=== PATIENT | male | born 1960 | race Caucasian/White ===

== ENCOUNTER 2018-10-25 01:21 | Inpatient (IN) | payer OTHER, SELFPAY ==
[2018-10-25] MEDS ORDERED: TICAGRELOR 90 MG TABLET ONE (02:11)
[2018-10-25] MEDS ORDERED: hydrALAZINE 20 MG/ML VIAL ONE (02:12)
[2018-10-25] MEDS ORDERED: Zolpidem Tartrate 5 MG TAB PO PRN (02:15)
[2018-10-25] MEDS ORDERED: traMADol HCl 50 MG TAB PO PRN (02:15)
[2018-10-25] MEDS ORDERED: Morphine 4 MG/ML VIAL SLOW IVP PRN (02:15)
[2018-10-25] MEDS ORDERED: Milk Of Magnesia 30 ML UDCUP PO PRN (02:15)
[2018-10-25] MEDS ORDERED: Nitroglycerin 0.4 MG TAB (25 Tab Bottle) SL PRN (02:15)
[2018-10-25] MEDS ORDERED: Sodium Chloride 0.9% 1,000 ML IV SCH (02:15)
--- NOTE | 2018-10-25 02:49 | HP ---
DATE OF CONSULTATION: 10/25/2018 CHIEF COMPLAINT: Chest pain. HISTORY OF PRESENT ILLNESS: Mr. Sauer is a pleasant 57-year-old white gentleman, who comes to the hospital for chest pain. He went to the [place] [facility] for chest tightness that started at 11:30 p.m. He was found to have an inferior ST-elevation AR, so he was transferred over for further care. He was taken immediately to the [facility] where he was found to have an occluded RCA. This was wired and successfully stented with a bare-metal stent per his request. He did well pain. He is chest pain-free. He is doing much better. He has a history of coronary artery disease with previous stenting to his RCA several years ago, I think in 2002 and again in 2011 to the LAD after an FFR was positive. Otherwise has not had any issues since. He follows up with Dr. Cazares, but he never sees him in the office, he only sees him here in the hospital where there is an issue. PAST MEDICAL HISTORY: 1. Coronary artery disease as above. 2. Hypertension. 3. Hyperlipidemia. 4. Ongoing tobacco use. PAST SURGICAL HISTORY: 1. Heart catheterization with stenting as above. 2. Left knee surgery. OUTPATIENT MEDICATIONS: 1. Glyburide 2.5 mg a day. 2. Pravastatin 40 mg at bedtime. 3. Lisinopril and hydrochlorothiazide 20/12.5 a day. 4. Fish oil. 5. Fluoxetine. 6. Aspirin. 7. Amlodipine 5 mg a day. ALLERGIES: NO KNOWN DRUG ALLERGIES. SOCIAL HISTORY: He continues to smoke half pack of cigarettes. He has done so for a long long time. FAMILY HISTORY: Diabetes, coronary artery disease in multiple family members. REVIEW OF SYSTEMS: A 12-point review of systems was done and was found to be negative unless stated in the history of present illness. PHYSICAL EXAMINATION: VITAL SIGNS: Temperature 97.2, pulse 70, respiratory rate 18, sats 98% on room air, blood pressure 165/100. GENERAL: Awake, alert, and oriented x3, in no distress. HEENT: Normocephalic, atraumatic. NECK: Supple. LUNGS: Clear. CARDIOVASCULAR: S1, S2. No S3 or S4. No murmurs. ABDOMEN: Soft. Positive bowel sounds. EXTREMITIES: No edema. SKIN: Warm and dry. LABORATORY DATA: Laboratory work was reviewed. White count of 8.4, hemoglobin of 14, hematocrit 44, platelet count 239. Coags were reviewed. Chemistries were reviewed. Creatinine was 1.49, GFR 48. Troponin was 0.08 initially. BNP of 53. EKG was reviewed, inferior ST elevations with reciprocal changes. Chest x-ray was reviewed. ASSESSMENT AND PLAN: 1. Acute inferior ST-elevation myocardial infarction. 2. Residual severe left circumflex/obtuse marginal disease. 3. Status post bare-metal stenting to the right coronary artery. 4. Hypertension. 5. Diabetes. 6. Hyperlipidemia. PLAN: 1. Continue dual antiplatelet therapy with Plavix and aspirin. 2. Continue statin therapy. 3. We will start his home medications. We will put him on lisinopril only. Hopefully, we will be able to put him on a beta [place]. He was bradycardic after we opened up his RCA, which is expected, but hopefully his heart rate will tolerate a beta austin tomorrow. 4. PPI for stress ulcer prophylaxis. 5. Heparin subcu for DVT prophylaxis once his sheath has been pulled. 6. Full code. 7. Disposition is pending clinical evaluation. Likely in the hospital a few days he may need revascularization of the OM branch before leaving the hospital. Job ID: [id number]
[2018-10-25 03:31] VITALS: BMI 39.7
[2018-10-25 04:11] LABS: #Basophils 0.1 thou/uL (0.0-0.2); #Eosinphils 0.1 thou/uL (0.0-0.7); #Lymphocytes 1.9 thou/uL (1.20-3.40); #Monocytes 0.3 thou/uL (0.11-0.59); %Basophils 0.6 % (0.0-1.0); %Eosinophils 0.9 % (0.0-10.0); %Lymphocytes 22.3 % (21.0-51.0); %Monocytes 3.9 % (0.0-10.0); %Neutrophils 72.3 % (42.0-75.0); Mean Corpuscular HGB CONC 33.8 g/dL (32.0-36.0); Mean Corpuscular Hemoglobin 29.3 pg (27.0-31.0); Mean Corpuscular Volume 86.6 fL (78.0-98.0); Mean Platelet Volume 8.2 fL (7.4-10.4); Platelet Count 229 thou/uL (130-400); Red Blood Cell (RBC) Count 5.12 mill/uL (4.70-6.10); White Blood Cell (WBC) Count 8.3 thou/uL (4.8-10.8)
[2018-10-25 04:30] LABS: Anion Gap 13 mmol/L (10-20); BUN (Urea Nitrogen) 17 mg/dL (8.4-25.7); Calc. Creatinine Clearance 104 mL/min (70-130); Calcium 10.1 mg/dL (7.8-10.44); Carbon Dioxide 24 mmol/L (22-29); Chloride 104 mmol/L (98-107); Estimated GFR-MDRD 53; Glucose 215 mg/dL (70-105); Potassium 4.1 mmol/L (3.5-5.1); Sodium 137 mmol/L (136-145)
[2018-10-25 04:33] LABS: Cardiac Risk 4.7 (Less than 4.5); Cholesterol 146 mg/dl (< 200 Desired); HDL Cholesterol 31 mg/dL (>60 Neg Risk); Triglycerides 458 mg/dL (Less than 150)
[2018-10-25 04:55] LABS: CKMB 115.4 ng/mL (0-6.6); Troponin I 16.904 ng/mL (< 0.028)
[2018-10-25] MEDS: Lisinopril 20 MG TAB PO SCH (07:39)
[2018-10-25] MEDS: Amlodipine 5 MG TAB PO SCH (07:40)
[2018-10-25 09:45] LABS: CKMB 187.8 ng/mL (0-6.6); Troponin I 98.368 ng/mL (< 0.028)
[2018-10-25] MEDS: Aspirin Chewable 81 MG TAB PO SCH (09:56)
[2018-10-25] MEDS: Clopidogrel Bisulfate 75 MG TAB PO SCH (09:56)
[2018-10-25] MEDS ORDERED: hydrALAZINE 20 MG/ML VIAL SLOW IVP PRN (11:24)
[2018-10-25] MEDS ORDERED: Ondansetron PF 4 MG/2 ML Vial SLOW IVP PRN (11:25)
[2018-10-25 20:13] LABS: Critical Call Chem Troponin I DECREASED
[2018-10-25 20:34] LABS: CKMB 78.1 ng/mL (0-6.6); Critical Call CKMB DECREASED
[2018-10-25] MEDS: Pravastatin Sodium 40 MG TAB PO SCH (21:31)
[2018-10-26 05:57] LABS: ALT (SGPT) 30 U/L (8-55); AST (SGOT) 73 U/L (5-34); Albumin 3.6 g/dL (3.5-5.0); Alkaline Phosphatase 55 U/L (40-150); Anion Gap 13 mmol/L (10-20); BUN (Urea Nitrogen) 13 mg/dL (8.4-25.7); Bilirubin, Total 0.5 mg/dL (0.2-1.2); Calc. Creatinine Clearance 109 mL/min (70-130); Calcium 9.5 mg/dL (7.8-10.44); Carbon Dioxide 23 mmol/L (22-29); Chloride 106 mmol/L (98-107); Estimated GFR-MDRD 56; Globulin 2.4 g/dL (2.4-3.5); Glucose 146 mg/dL (70-105); Sodium 138 mmol/L (136-145)
[2018-10-26 06:17] LABS: #Eosinphils 0.1 thou/uL (0.0-0.7); #Lymphocytes 1.7 thou/uL (1.20-3.40); #Monocytes 0.4 thou/uL (0.11-0.59); %Basophils 0.2 % (0.0-1.0); %Eosinophils 1.7 % (0.0-10.0); %Lymphocytes 32.4 % (21.0-51.0); %Monocytes 7.9 % (0.0-10.0); %Neutrophils 57.8 % (42.0-75.0); Hemoglobin 12.8 g/dL (14.0-18.0); Mean Corpuscular HGB CONC 28.3 g/dL (32.0-36.0); Mean Corpuscular Hemoglobin 25.1 pg (27.0-31.0); Mean Corpuscular Volume 88.7 fL (78.0-98.0); Mean Platelet Volume 8.4 fL (7.4-10.4); Platelet Count 192 thou/uL (130-400); RBC Distribution Width 12.4 % (11.5-14.5); Red Blood Cell (RBC) Count 5.11 mill/uL (4.70-6.10); White Blood Cell (WBC) Count 5.1 thou/uL (4.8-10.8)
[2018-10-26 06:18] LABS: Elliptocytes SLIGHT = 2-5 cells (100X) (0-1/hpf); MDiff Complete? YES; Platelet Morphology Comment Appears Adequate
[2018-10-26] MEDS: Lisinopril 20 MG TAB PO SCH (09:23)
[2018-10-26] MEDS: Clopidogrel Bisulfate 75 MG TAB PO SCH (09:24)
[2018-10-26] MEDS: Aspirin Chewable 81 MG TAB PO SCH (09:24)
[2018-10-26] MEDS: Amlodipine 5 MG TAB PO SCH (09:24)
[2018-10-26] MEDS ORDERED: Dextrose 5% in Water 1,000 ML IV PRN (11:55)
[2018-10-26] MEDS ORDERED: Dextrose 50% Abboject 50 ML SYRINGE IVP PRN (11:55)
[2018-10-26] MEDS: Insulin Regular 300 UNITS/3 ML VIAL SC PRN ×2 (12:15→18:13)
--- NOTE | 2018-10-26 12:26 | PDOC.CTH ---
Cardiology Progress Note - Subjective Doing well. No chest pain. No other issues. - Objective Vital Signs Temp Pulse Pulse Pulse BP BP BP 10/26/18 12:16 71 66 145/87 H 132/88 10/26/18 10:00 97.8 F 10/26/18 09:24 60 132/88 10/26/18 09:23 132/88 10/26/18 09:00 97.8 F 10/26/18 07:26 10/26/18 07:00 97.6 F Pulse Ox Pulse Ox Pulse Ox 10/26/18 12:16 98 97 10/26/18 10:00 10/26/18 09:24 10/26/18 09:23 10/26/18 09:00 10/26/18 07:26 98 10/26/18 07:00 Weight 276 lb 14.409 oz 10/25/18 10/26/18 10/27/18 06:59 06:59 06:59 Intake Total 532 1884 300 Output Total 500 2250 200 Balance 32 -366 100 - Physical Examination General/Neuro: alert & oriented x3, NAD Neck: no JVD present Lungs: unlabored respirations Heart: RRR Abdomen: NT/ND Extremities: + edema B (trace) - Telemetry Telemetry Rhythm: NSR - Labs Result Diagrams: 10/26/18 04:24 10/26/18 04:24 Troponin/CKMB CK-MB (CK-2) 78.1 ng/mL (0-6.6) H* 10/25/18 19:19 Troponin I 63.167 ng/mL (< 0.028) H* 10/25/18 19:19 - Assessment/Plan 1. Acute inferior STEMI 2. S/P BMS to RCA 3. Residual OM disease, will need staged PCI. 4. HTN 5. T2DM. PLAN: - Restart all home meds for DM - Continue aspirin and statin and plavix. - Will up titrate CHF meds. - Will transfer to telemetry floor.
[2018-10-26] MEDS: Carvedilol 6.25 MG TAB PO SCH (18:14)
[2018-10-26] MEDS: busPIRone HCl 10 MG TAB PO SCH (20:38)
[2018-10-26] MEDS: Pravastatin Sodium 40 MG TAB PO SCH (20:38)
[2018-10-27] MEDS: Mag-Al 1200 mg/1200 mg/30 ML UDCUP PO PRN ×3 (02:37→20:06)
[2018-10-27] MEDS: Carvedilol 6.25 MG TAB PO SCH (09:04)
[2018-10-27] MEDS: Aspirin Chewable 81 MG TAB PO SCH (09:04)
[2018-10-27] MEDS: Clopidogrel Bisulfate 75 MG TAB PO SCH (09:05)
[2018-10-27] MEDS: busPIRone HCl 10 MG TAB PO SCH ×2 (09:05→19:58)
[2018-10-27] MEDS: Lisinopril 20 MG TAB PO SCH (09:05)
[2018-10-27] MEDS: Amlodipine 5 MG TAB PO SCH (09:05)
[2018-10-27] MEDS: Insulin Regular 300 UNITS/3 ML VIAL SC PRN ×2 (09:16→17:24)
[2018-10-27] MEDS ORDERED: Communication Order-Pharmacy FS SCH (10:45)
[2018-10-27] MEDS: Pravastatin Sodium 40 MG TAB PO SCH (19:58)
--- NOTE | 2018-10-27 21:18 | PDOC.PN ---
- Subjective Encounter Start Date: 10/27/18 Encounter Start Time: 10:30 Patient seen and examined for DM mngt. No new complaints. No overnight events - Objective MAR Reviewed: Yes Vital Signs & Weight: Vital Signs (12 hours) Temp Pulse Pulse Pulse Resp BP BP 10/27/18 16:42 98 F 58 L 18 10/27/18 11:49 98.2 F 60 18 10/27/18 09:58 59 L 78 144/86 H 146/83 H BP Pulse Ox Pulse Ox Pulse Ox 10/27/18 16:42 112/58 L 94 L 10/27/18 11:49 115/58 L 96 10/27/18 09:58 96 98 Weight Weight 275 lb 2 oz Most Recent Monitor Data Heart Rate from ECG 73 NIBP 117/88 NIBP BP-Mean 97 Respiration from ECG 18 SpO2 95 I&O: 10/26/18 10/27/18 10/28/18 06:59 06:59 06:59 Intake Total 1884 1180 860 Output Total 2250 1550 1000 Balance -366 -637 -690 Result Diagrams: 10/26/18 04:24 10/26/18 04:24 Additional Labs: Accuchecks 10/27/18 10/27/18 10/27/18 16:35 10:49 05:06 POC Glucose 170 H 123 H 161 H 10/26/18 20:20 POC Glucose 134 H EKG Reviewed by me: Yes (Tele SR) Phys Exam - Physical Examination Constitutional: NAD Respiratory: no wheezing, no rhonchi Cardiovascular: RRR, no rub Gastrointestinal: soft, non-tender, positive bowel sounds Musculoskeletal: no edema Dx/Plan (1) DM2 (diabetes mellitus, type 2) Status: Chronic Qualifiers: Chronic kidney disease stage: stage 3 (moderate) - Plan DVT proph w/SCDs Hold Metformin and Glyburide -: Mild insulin sliding scale -: Sugar checks ACHS -: Thank you for this consultation. Review of Systems - Review of Systems Respiratory: negative: Cough, Dry, Shortness of Breath, Hemoptysis, SOB with Excertion, Pleuritic Pain, Sputum, Wheezing Cardiovascular: negative: chest pain, palpitations, orthopnea, paroxysmal nocturnal dyspnea, edema, light headedness, other - Medications/Allergies Allergies/Adverse Reactions: Allergies Allergy/AdvReac Type Severity Reaction Status Date / Time No Known Allergies Allergy Verified 10/25/18 03:16 Medications: Current Medications Al Hydroxide/Mg Hydroxide (Maalox) 30 ml PO Q3H PRN PRN Reason: Indigestion Last Admin: 10/27/18 20:06 Dose: 30 ml Amlodipine Besylate (Norvasc) 5 mg PO DAILY [facility] Last Admin: 10/27/18 09:05 Dose: 5 mg Aspirin (Aspirin Chewable) 324 mg PO DAILY [facility] Last Admin: 10/27/18 09:04 Dose: 324 mg Buspirone HCl (Buspar) 10 mg PO BID [facility] Last Admin: 10/27/18 19:58 Dose: 10 mg Clopidogrel Bisulfate (Plavix) 75 mg PO DAILY [facility] Last Admin: 10/27/18 09:05 Dose: 75 mg Dextrose/Water (Dextrose 50%) 25 gm IVP PRN PRN PRN Reason: HYPOGLYCEMIA PROTOCOL Glucagon (Glucagon) 1 mg IM PRN PRN PRN Reason: HYPOGLYCEMIA PROTOCOL Hydralazine HCl (Apresoline) 10 mg SLOW IVP Q6H PRN PRN Reason: SBP Greater Than 170 Dextrose/Water (D5w) 1,000 mls @ 0 mls/hr IV INF PRN PRN Reason: HYPOGLYCEMIA PROTOCOL Sodium Chloride (Normal Saline 0.9%) 1,000 mls @ 100 mls/hr IV .Q10H [facility] Insulin Human Regular (Humulin R) 0 units SC .MILD SLIDING PRN; Protocol PRN Reason: MILD SLIDING SCALE Last Admin: 10/27/18 17:24 Dose: 2 unit Lisinopril (Zestril) 20 mg PO DAILY [facility] Last Admin: 10/27/18 09:05 Dose: 20 mg Magnesium Hydroxide (Milk Of Magnesium) 30 ml PO Q12H PRN PRN Reason: Constipation Miscellaneous Information (Communication Order-Pharmacy) 0 each FS ONE [facility] Stop: 10/29/18 15:00 Morphine Sulfate (Morphine) 2 mg SLOW IVP Q4H PRN PRN Reason: Moderate Chest Pain (4-6) Nitroglycerin (Nitrostat) 0.4 mg SL Q5MIN PRN PRN Reason: Chest Pain Ondansetron HCl (Zofran) 4 mg SLOW IVP Q6H PRN PRN Reason: Nausea/Vomiting Last Admin: 10/25/18 08:00 Dose: 4 mg Pantoprazole Sodium (Protonix) 40 mg PO DAILY [facility] Last Admin: 10/27/18 09:04 Dose: 40 mg Pravastatin Sodium (Pravachol) 40 mg PO HS [facility] Last Admin: 10/27/18 19:58 Dose: 40 mg Sodium Chloride (Flush - Normal Saline) 10 ml IVF Q12HR [facility] Last Admin: 10/27/18 19:58 Dose: 10 ml Sodium Chloride (Flush - Normal Saline) 10 ml IVF PRN PRN PRN Reason: Saline Flush Tramadol HCl (Ultram) 50 mg PO Q6H PRN PRN Reason: Mild Pain (1-3) Zolpidem Tartrate (Ambien) 5 mg PO HSPRN PRN PRN Reason: Insomnia
[2018-10-28 06:09] LABS: Anion Gap 11 mmol/L (10-20); BUN (Urea Nitrogen) 18 mg/dL (8.4-25.7); Calc. Creatinine Clearance 106 mL/min (70-130); Calcium 9.8 mg/dL (7.8-10.44); Carbon Dioxide 26 mmol/L (22-29); Chloride 106 mmol/L (98-107); Estimated GFR-MDRD 55; Glucose 150 mg/dL (70-105); Magnesium 2.3 mg/dL (1.6-2.6); Potassium 4.1 mmol/L (3.5-5.1); Sodium 139 mmol/L (136-145)
[2018-10-28] MEDS: Lisinopril 20 MG TAB PO SCH (10:09)
[2018-10-28] MEDS: Aspirin Chewable 81 MG TAB PO SCH (10:09)
[2018-10-28] MEDS: Sodium Chloride 0.9% 1,000 ML IV SCH (10:09)
[2018-10-28] MEDS: Amlodipine 5 MG TAB PO SCH (10:09)
[2018-10-28] MEDS: busPIRone HCl 10 MG TAB PO SCH ×2 (10:10→21:05)
[2018-10-28] MEDS: Clopidogrel Bisulfate 75 MG TAB PO SCH (10:33)
--- NOTE | 2018-10-28 20:31 | PDOC.PN ---
- Subjective Encounter Start Date: 10/28/18 Encounter Start Time: 10:15 Patient seen and examined for DM mngt. No new complaints. No overnight events - Objective MAR Reviewed: Yes Vital Signs & Weight: Vital Signs (12 hours) Temp Pulse Pulse Pulse Resp BP BP 10/28/18 15:52 98.3 F 56 L 18 10/28/18 12:51 98 F 56 L 18 10/28/18 09:19 56 L 52 L 180/89 H 166/83 H BP Pulse Ox Pulse Ox Pulse Ox 10/28/18 15:52 95 10/28/18 12:51 138/76 96 10/28/18 09:19 95 96 Weight Weight 274 lb 6 oz Most Recent Monitor Data Heart Rate from ECG 73 NIBP 117/88 NIBP BP-Mean 97 Respiration from ECG 18 SpO2 95 I&O: 10/27/18 10/28/18 10/29/18 06:59 06:59 06:59 Intake Total 1180 1560 1550 Output Total 1550 2825 820 Balance -370 -1265 730 Result Diagrams: 10/26/18 04:24 10/28/18 05:15 Additional Labs: Accuchecks 10/28/18 10/28/18 10/28/18 16:26 10:57 05:21 POC Glucose 159 H 152 H 145 H 10/27/18 20:35 POC Glucose 165 H Phys Exam - Physical Examination Constitutional: NAD Respiratory: no wheezing, no rhonchi Cardiovascular: RRR, no rub Gastrointestinal: soft, positive bowel sounds Dx/Plan (1) DM2 (diabetes mellitus, type 2) Status: Chronic Qualifiers: Chronic kidney disease stage: stage 3 (moderate) (2) SEB (obstructive sleep apnea) Code(s): G47.33 - OBSTRUCTIVE SLEEP APNEA (ADULT) (PEDIATRIC) Status: Suspected - Plan DVT proph w/SCDs Start Glipizide post Cath in AM -: Resume Metformin in 2-3 days -: Cont sliding scale -: CPAP trial HS if possible Review of Systems - Review of Systems Respiratory: negative: Cough, Dry, Shortness of Breath, Hemoptysis, SOB with Excertion, Pleuritic Pain, Sputum, Wheezing Cardiovascular: negative: chest pain, palpitations, orthopnea, paroxysmal nocturnal dyspnea, edema, light headedness, other - Medications/Allergies Allergies/Adverse Reactions: Allergies Allergy/AdvReac Type Severity Reaction Status Date / Time No Known Allergies Allergy Verified 10/25/18 03:16 Medications: Current Medications Al Hydroxide/Mg Hydroxide (Maalox) 30 ml PO Q3H PRN PRN Reason: Indigestion Last Admin: 10/27/18 20:06 Dose: 30 ml Amlodipine Besylate (Norvasc) 5 mg PO DAILY [facility] Last Admin: 10/28/18 10:09 Dose: 5 mg Aspirin (Aspirin Chewable) 324 mg PO DAILY [facility] Last Admin: 10/28/18 10:09 Dose: 324 mg Buspirone HCl (Buspar) 10 mg PO BID [facility] Last Admin: 10/28/18 10:10 Dose: 10 mg Clopidogrel Bisulfate (Plavix) 75 mg PO DAILY [facility] Last Admin: 10/28/18 10:33 Dose: 75 mg Dextrose/Water (Dextrose 50%) 25 gm IVP PRN PRN PRN Reason: HYPOGLYCEMIA PROTOCOL Glipizide (Glucotrol) 5 mg PO DAILY[facility] Glucagon (Glucagon) 1 mg IM PRN PRN PRN Reason: HYPOGLYCEMIA PROTOCOL Hydralazine HCl (Apresoline) 10 mg SLOW IVP Q6H PRN PRN Reason: SBP Greater Than 170 Dextrose/Water (D5w) 1,000 mls @ 0 mls/hr IV INF PRN PRN Reason: HYPOGLYCEMIA PROTOCOL Sodium Chloride (Normal Saline 0.9%) 1,000 mls @ 100 mls/hr IV .Q10H [facility] Sodium Chloride (Normal Saline 0.9%) 1,000 mls @ 50 mls/hr IV .Q20H [facility] Stop: 10/29/18 06:00 Last Admin: 10/28/18 10:09 Dose: 1,000 mls Insulin Human Regular (Humulin R) 0 units SC .MILD SLIDING PRN; Protocol PRN Reason: MILD SLIDING SCALE Last Admin: 10/27/18 17:24 Dose: 2 unit Lisinopril (Zestril) 20 mg PO DAILY [facility] Last Admin: 10/28/18 10:09 Dose: 20 mg Magnesium Hydroxide (Milk Of Magnesium) 30 ml PO Q12H PRN PRN Reason: Constipation Miscellaneous Information (Communication Order-Pharmacy) 0 each FS ONE [facility] Stop: 10/29/18 15:00 Morphine Sulfate (Morphine) 2 mg SLOW IVP Q4H PRN PRN Reason: Moderate Chest Pain (4-6) Nitroglycerin (Nitrostat) 0.4 mg SL Q5MIN PRN PRN Reason: Chest Pain Ondansetron HCl (Zofran) 4 mg SLOW IVP Q6H PRN PRN Reason: Nausea/Vomiting Last Admin: 10/25/18 08:00 Dose: 4 mg Pantoprazole Sodium (Protonix) 40 mg PO DAILY [facility] Last Admin: 10/28/18 10:09 Dose: 40 mg Pravastatin Sodium (Pravachol) 40 mg PO HS [facility] Last Admin: 10/27/18 19:58 Dose: 40 mg Sodium Chloride (Flush - Normal Saline) 10 ml IVF Q12HR [facility] Last Admin: 10/28/18 10:10 Dose: 10 ml Sodium Chloride (Flush - Normal Saline) 10 ml IVF PRN PRN PRN Reason: Saline Flush Tramadol HCl (Ultram) 50 mg PO Q6H PRN PRN Reason: Mild Pain (1-3) Zolpidem Tartrate (Ambien) 5 mg PO HSPRN PRN PRN Reason: Insomnia
[2018-10-28] MEDS: Mag-Al 1200 mg/1200 mg/30 ML UDCUP PO PRN (21:05)
[2018-10-28] MEDS: Pravastatin Sodium 40 MG TAB PO SCH (21:05)
[2018-10-29] MEDS: Sodium Chloride 0.9% 1,000 ML IV SCH (04:37)
[2018-10-29] MEDS: Amlodipine 5 MG TAB PO SCH (05:24)
[2018-10-29] MEDS: busPIRone HCl 10 MG TAB PO SCH ×2 (05:25→20:22)
[2018-10-29] MEDS: Lisinopril 20 MG TAB PO SCH (05:25)
[2018-10-29] MEDS: Clopidogrel Bisulfate 75 MG TAB PO SCH (05:25)
[2018-10-29] MEDS: Aspirin Chewable 81 MG TAB PO SCH (05:25)
[2018-10-29] MEDS ORDERED: Sodium Chloride 0.9% 1,000 ML IV SCH ×2 (06:00→08:15)
[2018-10-29] MEDS ORDERED: Fentanyl 100 MCG/2 ML VIAL ONE (06:37)
[2018-10-29] MEDS ORDERED: Midazolam HCl 2 mg/2 ml Vial ONE (06:37)
[2018-10-29 07:04] LABS: Anion Gap 10 mmol/L (10-20); Calc. Creatinine Clearance 100 mL/min (70-130); Calcium 9.7 mg/dL (7.8-10.44); Carbon Dioxide 26 mmol/L (22-29); Chloride 106 mmol/L (98-107); Estimated GFR-MDRD 52; Glucose 165 mg/dL (70-105); Potassium 4.3 mmol/L (3.5-5.1); Sodium 138 mmol/L (136-145)
[2018-10-29] MEDS ORDERED: Heparin 10,000 UNITS/1 ML VIAL ONE (07:11)
[2018-10-29] MEDS ORDERED: Bivalirudin 250 MG VIAL ONE (07:11)
[2018-10-29] MEDS ORDERED: Atropine Sulfate 1 mg/10 ml Syringe ONE (07:20)
[2018-10-29] MEDS ORDERED: Protamine Sulfate 50 MG/5 ML VIAL ONE (07:44)
[2018-10-29] MEDS ORDERED: Acetaminophen/Codeine 30-300mg Tablet PO PRN ×2 (08:13)
[2018-10-29] MEDS ORDERED: Sodium Chloride 0.9% 200 ML IV PRN (08:13)
[2018-10-29] MEDS ORDERED: Nitroglycerin 0.4 MG TAB (25 Tab Bottle) SL PRN (08:13)
[2018-10-29] MEDS: glipiZIDE 5 MG TAB PO SCH (08:41)
[2018-10-29] MEDS ORDERED: Iopamidol 370 76% 100 ML VIAL ONE (08:57)
[2018-10-29 09:00] LABS: BUN (Urea Nitrogen) 15 mg/dL (8.4-25.7)
[2018-10-29] MEDS: Amlodipine 10 MG TAB PO SCH (09:46)
[2018-10-29] MEDS: Mag-Al 1200 mg/1200 mg/30 ML UDCUP PO PRN ×2 (13:49→20:22)
--- NOTE | 2018-10-29 14:28 | CON ---
DATE OF CONSULTATION: HISTORY OF PRESENT ILLNESS: This is a 57-year-old gentleman, admitted about 4 days ago with chest pain and tightness, started about midnight, felt to be having an inferior [place] and transferred for care, where he was found to have an occluded right coronary artery and a bare-metal stent was placed. He had previously had stenting to his right coronary artery. He thinks about 8 and 5 years ago to the LAD. His compliance has been marginal with no followup with his home health care social worker. He was planned on a subsequent stent to a circumflex; however, on a repeat catheterization today, he had not only the distal OM lesion, which was concentric 80% stenosis, but he was felt to have an ostial LAD lesion of about 80%. PAST MEDICAL HISTORY: Includes hypertension, dyslipidemia, diabetes mellitus, and ongoing tobacco abuse. OUTPATIENT MEDICATIONS: Include; 1. Glyburide. 2. Pravastatin. 3. Lisinopril/hydrochlorothiazide. 4. Prozac. 5. Aspirin. 6. Amlodipine. 7. Since having his bare-metal stent, he has been loaded and started on Plavix. ALLERGIES: HE HAS NO KNOWN ALLERGIES. SOCIAL HISTORY: He does admit to smoking about almost a pack of cigarettes a day. He lives with his 14 and 19 year old daughters. 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 He does admit to marijuana use. DIAGNOSTIC DATA: Peak troponin in the hospital was about 100. He reported cardiac echo, which will need to be repeated prior to his surgery with an estimated ejection fraction of 50% to 55%, which seems in discordance with the left ventriculogram, but I saw that appeared to be about 35%, global hypokinesis. PAST SURGICAL HISTORY: Includes knee surgery on the left. PHYSICAL EXAMINATION: GENERAL: On examination, he is alert and cooperative gentleman. VITAL SIGNS: Height 5 feet 10 inches, weight 271, and BMI 39. NECK: No carotid bruits. LUNGS: Clear to auscultation anteriorly. CARDIAC: Regular rate and rhythm. No murmurs. ABDOMEN: Obese and nontender. Unable to palpate organomegaly due to size. EXTREMITIES: Peripheral pulses are intact posterior tibials bilaterally with no peripheral edema. ASSESSMENT AND PLAN: At this time, the patient could have graft to distal obtuse marginal and left anterior descending. Not sure that his ramus or proximal obtuse marginal have significant disease. He does have a diagonal with some disease, but it appears small. His main right coronary artery is okay and he has rather diffusely diseased small vessel distally in his right system. I have discussed smoking cessation and I will follow up with him in a month, at which time, we will stop his Plavix if he is interested in having coronary artery bypass grafting. Job ID: [id number]
[2018-10-29] MEDS: ALPRAZolam 0.25 MG TAB PO PRN (17:35)
[2018-10-29] MEDS: Pravastatin Sodium 40 MG TAB PO SCH (20:22)
--- NOTE | 2018-10-29 21:46 | PDOC.PN ---
- Subjective Encounter Start Date: 10/29/18 Encounter Start Time: 11:00 Patient seen and examined for DM2 mngt. No new complaints. No overnight events - Objective MAR Reviewed: Yes Vital Signs & Weight: Vital Signs (12 hours) Temp Pulse Resp BP BP Pulse Ox 10/29/18 20:20 97.7 F 75 18 159/70 H 98 10/29/18 16:10 99.9 F H 54 L 16 167/85 H 95 10/29/18 12:18 97.4 F L 66 14 154/79 H 98 Weight Weight 271 lb 14.4 oz Most Recent Monitor Data Heart Rate from ECG 73 NIBP 117/88 NIBP BP-Mean 97 Respiration from ECG 18 SpO2 95 I&O: 10/28/18 10/29/18 10/30/18 06:59 06:59 06:59 Intake Total 1560 2630 1800 Output Total 2825 1720 1950 Balance -1265 910 -150 Result Diagrams: 10/26/18 04:24 10/30/18 05:02 Additional Labs: Accuchecks 10/29/18 10/29/18 10/29/18 20:41 17:43 11:21 POC Glucose 156 H 123 H 138 H 10/29/18 06:02 POC Glucose 185 H EKG Reviewed by me: Yes (Tele SR) Phys Exam - Physical Examination Constitutional: NAD Respiratory: no wheezing, no rhonchi Cardiovascular: RRR, no rub Gastrointestinal: soft, non-tender, positive bowel sounds Musculoskeletal: no edema Dx/Plan (1) DM2 (diabetes mellitus, type 2) Status: Chronic Qualifiers: Chronic kidney disease stage: stage 3 (moderate) (2) SEB (obstructive sleep apnea) Code(s): G47.33 - OBSTRUCTIVE SLEEP APNEA (ADULT) (PEDIATRIC) Status: Suspected - Plan DVT proph w/SCDs Cont Glipzide -: Resume Metformin after 2 days -: Sleep study as outpt -: Declining long acting insulins - prefers to be on PO sulfonylureas Review of Systems - Review of Systems Cardiovascular: negative: chest pain, palpitations, orthopnea, paroxysmal nocturnal dyspnea, edema, light headedness, other Gastrointestinal: negative: Nausea, Vomiting, Abdominal Pain, Diarrhea, Constipation, Melena, Hematochezia, Other - Medications/Allergies Allergies/Adverse Reactions: Allergies Allergy/AdvReac Type Severity Reaction Status Date / Time No Known Allergies Allergy Verified 10/25/18 03:16 Medications: Current Medications Acetaminophen/Codeine Phosphate (Tylenol #3) 1 tab PO Q4H PRN PRN Reason: Mild Pain (1-3) Acetaminophen/Codeine Phosphate (Tylenol #3) 2 tab PO Q4H PRN PRN Reason: Moderate Pain (4-6) Al Hydroxide/Mg Hydroxide (Maalox) 30 ml PO Q3H PRN PRN Reason: Indigestion Last Admin: 10/29/18 20:22 Dose: 30 ml Alprazolam (Xanax) 0.25 mg PO BIDPRN PRN PRN Reason: Anxiety Last Admin: 10/29/18 17:35 Dose: 0.25 mg Amlodipine Besylate (Norvasc) 5 mg PO DAILY [facility] Last Admin: 10/29/18 05:24 Dose: 5 mg Amlodipine Besylate (Norvasc) 10 mg PO DAILY [facility] Last Admin: 10/29/18 09:46 Dose: 10 mg Aspirin (Aspirin Chewable) 324 mg PO DAILY [facility] Last Admin: 10/29/18 05:25 Dose: 324 mg Buspirone HCl (Buspar) 10 mg PO BID [facility] Last Admin: 10/29/18 20:22 Dose: 10 mg Clopidogrel Bisulfate (Plavix) 75 mg PO DAILY [facility] Last Admin: 10/29/18 05:25 Dose: 75 mg Dextrose/Water (Dextrose 50%) 25 gm IVP PRN PRN PRN Reason: HYPOGLYCEMIA PROTOCOL Glipizide (Glucotrol) 5 mg PO DAILY[facility] Last Admin: 10/29/18 08:41 Dose: Not Given Glucagon (Glucagon) 1 mg IM PRN PRN PRN Reason: HYPOGLYCEMIA PROTOCOL Hydralazine HCl (Apresoline) 10 mg SLOW IVP Q6H PRN PRN Reason: SBP Greater Than 170 Dextrose/Water (D5w) 1,000 mls @ 0 mls/hr IV INF PRN PRN Reason: HYPOGLYCEMIA PROTOCOL Sodium Chloride (Normal Saline 0.9%) 200 mls @ 0 mls/hr IV ONE PRN PRN Reason: SBP < 90 Stop: 10/30/18 08:14 Insulin Human Regular (Humulin R) 0 units SC .MILD SLIDING PRN; Protocol PRN Reason: MILD SLIDING SCALE Last Admin: 10/27/18 17:24 Dose: 2 unit Lisinopril (Zestril) 20 mg PO DAILY [facility] Last Admin: 10/29/18 05:25 Dose: 20 mg Magnesium Hydroxide (Milk Of Magnesium) 30 ml PO Q12H PRN PRN Reason: Constipation Morphine Sulfate (Morphine) 2 mg SLOW IVP Q4H PRN PRN Reason: Moderate Chest Pain (4-6) Nitroglycerin (Nitrostat) 0.4 mg SL Q5MIN PRN PRN Reason: Chest Pain Nitroglycerin (Nitrostat) 0.4 mg SL Q5MIN PRN PRN Reason: Chest Pain Ondansetron HCl (Zofran) 4 mg SLOW IVP Q6H PRN PRN Reason: Nausea/Vomiting Last Admin: 10/25/18 08:00 Dose: 4 mg Pantoprazole Sodium (Protonix) 40 mg PO DAILY [facility] Last Admin: 10/29/18 05:26 Dose: 40 mg Pravastatin Sodium (Pravachol) 40 mg PO HS [facility] Last Admin: 10/29/18 20:22 Dose: 40 mg Sodium Chloride (Flush - Normal Saline) 10 ml IVF Q12HR [facility] Last Admin: 10/29/18 20:22 Dose: 10 ml Sodium Chloride (Flush - Normal Saline) 10 ml IVF PRN PRN PRN Reason: Saline Flush Tramadol HCl (Ultram) 50 mg PO Q6H PRN PRN Reason: Mild Pain (1-3) Zolpidem Tartrate (Ambien) 5 mg PO HSPRN PRN PRN Reason: Insomnia
[2018-10-30 06:12] LABS: Anion Gap 12 mmol/L (10-20); BUN (Urea Nitrogen) 17 mg/dL (8.4-25.7); Calc. Creatinine Clearance 98 mL/min (70-130); Calcium 10.1 mg/dL (7.8-10.44); Carbon Dioxide 26 mmol/L (22-29); Chloride 105 mmol/L (98-107); Estimated GFR-MDRD 52; Glucose 134 mg/dL (70-105); Potassium 4.1 mmol/L (3.5-5.1); Sodium 139 mmol/L (136-145)
[2018-10-30] MEDS: Amlodipine 10 MG TAB PO SCH (09:14)
[2018-10-30] MEDS: glipiZIDE 5 MG TAB PO SCH (09:14)
[2018-10-30] MEDS: Aspirin Chewable 81 MG TAB PO SCH (09:16)
[2018-10-30] MEDS: Clopidogrel Bisulfate 75 MG TAB PO SCH (09:18)
[2018-10-30] MEDS: busPIRone HCl 10 MG TAB PO SCH (09:18)
[2018-10-30] MEDS: Lisinopril 20 MG TAB PO SCH (09:19)
[2018-10-30] MEDS: ALPRAZolam 0.25 MG TAB PO PRN (15:46)
--- NOTE | 2018-10-30 16:14 | PDOC.EVN ---
Event Note - Event Note Event Note: No Betablockers due to bradycardia
[2018-10-30 16:24] VITALS: BP 142/93; TEMP 96.4
--- NOTE | 2018-10-31 05:30 | DIS ---
DATE OF ADMISSION: 10/25/2018 DATE OF DISCHARGE: 10/30/2018 DISCHARGE DISPOSITION: Home. FOLLOWUP: 1. Follow up with [facility] in 1 week. 2. Follow up with Dr. Cazares in 2 to 3 weeks. 3. Outpatient sleep study is recommended. 4. Follow up with cardiovascular for evaluation for open heart surgery. Resume metformin after 2 days. DISCHARGE MEDICATIONS: 1. Aspirin 325 mg daily. 2. Plavix 75 mg daily. 3. Glyburide 2.5 mg daily. 4. Lisinopril 20 mg daily. 5. Amlodipine 10 mg daily. 6. Pravastatin 40 mg at bedtime. 7. Hydrochlorothiazide 25 mg daily. 8. Buspirone 10 mg b.i.d. 9. Fish oil 1000 mg daily. [facility]. BRIEF HOSPITAL COURSE: The patient is a 57-year-old male with coronary artery disease, hypertension, hyperlipidemia, and with ongoing tobacco abuse presented to [facility] with chest discomfort. He was transferred to this facility as STEMI alert. He underwent emergent cardiac catheterization and was found to have occluded RCA and a bare metal stent was placed. He has a history of previous stenting to the RCA as well. He underwent repeat cardiac catheterization by Dr. Cazares yesterday that was consistent with three-vessel disease. The coronary artery bypass grafting was recommended. He was evaluated by Dr. Joyner. Lifestyle modification including tobacco cessation was emphasized. He will follow up with Dr. Joyner next month once he completes his 30 days of Plavix. An echocardiogram was performed that showed ejection fraction 50% to 55% with grade 1/3 diastolic dysfunction, mild mitral regurgitation, and mild tricuspid regurgitation. On the day of discharge, the patient is chest pain-free. His vital signs show temperature 96.1, pulse rate of 59, respirations of 18, blood pressure 137/68 with O2 saturation 96% on room air. The patient was also found to have sinus bradycardia, especially at night. He was advised to get a sleep study as outpatient. Beta blockers were not started due to significant bradycardia with heart rate in 30s. FINAL DIAGNOSES: 1. Chest discomfort with ST-elevation myocardial infarction. His maximum troponin was 63.1. 2. Chronic kidney disease, stage 3. 3. Diabetes mellitus type 2. 4. Suspected obstructive sleep apnea. 5. Tobacco dependence. 6. Hypertension. 7. Hyperlipidemia. 8. History of coronary artery disease. PLAN: Plan of care was discussed with the patient. He stated understanding. Job ID: [id number]
== END 2018-10-30 17:10 | disposition home or self-care (01) | DRG 249 ==
LOC: CCL 01:21 → CCU 02:02 → 2NO 10-26 12:27
PROVIDERS: ADMIT Internal Medicine Cardiovascular Disease; ATTEND Internal Medicine Cardiovascular Disease
PROC: 02703DZ Dilation of Coronary Artery, One Artery with Intraluminal Device, Percutaneous Approach (ICD-10-PCS; principal; 2018-10-25)
PROC: 4A023N7 Measurement of Cardiac Sampling and Pressure, Left Heart, Percutaneous Approach (ICD-10-PCS; 2018-10-25)
PROC: B2111ZZ Fluoroscopy of Multiple Coronary Arteries using Low Osmolar Contrast (ICD-10-PCS; 2018-10-25)
PROC: 4A023N7 Measurement of Cardiac Sampling and Pressure, Left Heart, Percutaneous Approach (ICD-10-PCS; 2018-10-29)
PROC: B2111ZZ Fluoroscopy of Multiple Coronary Arteries using Low Osmolar Contrast (ICD-10-PCS; 2018-10-29)
DX: I21.19 ST elevation (STEMI) myocardial infarction involving other coronary artery of inferior wall (principal); I25.10 Atherosclerotic heart disease of native coronary artery without angina pectoris; I12.9 Hypertensive chronic kidney disease with stage 1 through stage 4 chronic kidney disease, or unspecified chronic kidney disease; E11.22 Type 2 diabetes mellitus with diabetic chronic kidney disease; N18.3 Chronic kidney disease, stage 3 (moderate); G47.33 Obstructive sleep apnea (adult) (pediatric); E78.5 Hyperlipidemia, unspecified; F17.210 Nicotine dependence, cigarettes, uncomplicated; Z91.19 Patient's noncompliance with other medical treatment and regimen; Z79.84 Long term (current) use of oral hypoglycemic drugs; Z79.82 Long term (current) use of aspirin; Z79.899 Other long term (current) drug therapy
CPT/HCPCS: 36415; 36416; 80048; 80053; 80061; 82553; 83735; 85025; 85347; 92928; 93005; 93010; 93306; 93458; 93798; 94760; 99152; 99153; C1725; C1769; C1876; C1887; J0360; J0461; J0583; J1644; J1815; J2250; J2270; J2405; J2720; J3010; Q9967

== ENCOUNTER 2018-12-08 12:00 | Inpatient (IN) | payer SELFPAY ==
[2018-12-08 13:09] LABS: Hemoglobin 14.1 g/dL (14.0-18.0); Mean Corpuscular HGB CONC 33.8 g/dL (32.0-36.0); Mean Corpuscular Hemoglobin 28.7 pg (27.0-31.0); Mean Corpuscular Volume 84.9 fL (78.0-98.0); Mean Platelet Volume 7.7 fL (7.4-10.4); Platelet Count 212 thou/uL (130-400); RBC Distribution Width 11.7 % (11.5-14.5); White Blood Cell (WBC) Count 7.4 thou/uL (4.8-10.8)
[2018-12-08 13:32] LABS: Anion Gap 12 mmol/L (10-20); BUN (Urea Nitrogen) 21 mg/dL (8.4-25.7); Calc. Creatinine Clearance 0 mL/min (70-130); Calcium 10.1 mg/dL (7.8-10.44); Carbon Dioxide 27 mmol/L (22-29); Chloride 103 mmol/L (98-107); Estimated GFR-MDRD 46; Glucose 89 mg/dL (70-105); Potassium 3.4 mmol/L (3.5-5.1); Sodium 139 mmol/L (136-145)
[2018-12-09] MEDS ORDERED: Bupivacaine HCl 0.5%/Epinephrine 1:200,000/PF 30 ml Vial ONE (06:34)
[2018-12-09] MEDS ORDERED: Dexamethasone 4 mg/ml Vial ONE (06:34)
[2018-12-09] MEDS ORDERED: Heparin 10,000 UNITS/1 ML VIAL 30,000 UNITS in Sodium Chloride 0.9% 1,000 ML FS SCH (06:45)
[2018-12-09] MEDS ORDERED: Midazolam HCl 5 mg/5 ml Vial ONE (06:50)
[2018-12-09] MEDS ORDERED: Fentanyl 250 MCG/5 ML VIAL ONE (06:50)
[2018-12-09] MEDS ORDERED: Midazolam HCl 2 mg/2 ml Vial ONE (07:11)
[2018-12-09] MEDS ORDERED: Albumin 5% 500 ML ONE (08:09)
[2018-12-09] MEDS ORDERED: PHENYLEPHRINE-NS 100 MCG/ML 10 ML SYRINGE ONE (10:06)
[2018-12-09] MEDS ORDERED: Vecuronium 10 MG VIAL ONE ×2 (10:36→13:05)
[2018-12-09] MEDS ORDERED: Insulin Regular 300 UNITS/3 ML VIAL ONE (10:41)
[2018-12-09] MEDS ORDERED: Bisacodyl 10 MG SUPP PR PRN (11:35)
[2018-12-09] MEDS ORDERED: Guaifenesin DM 100-10/5 ML UDCUP PO PRN (11:35)
[2018-12-09] MEDS ORDERED: HYDROcodone/Acetaminophen 5/325 mg Tablet PO PRN (11:35)
[2018-12-09] MEDS ORDERED: Magnesium 2 GM/NS 0.9% 100 ML 2 GM in Premix Bag 1 BAG IVPB SCH (11:35)
[2018-12-09] MEDS ORDERED: niCARdipine HCl 25 MG in Sodium Chloride 0.9% 250 ML 240 ML IVPB PRN (11:35)
[2018-12-09] MEDS ORDERED: Hetastarch 6% 500 ML 500 ML IVPB PRN (11:35)
[2018-12-09] MEDS ORDERED: DOPamine 400 MG/D5W 250 ML 250 ML IVPB PRN (11:35)
[2018-12-09] MEDS ORDERED: Post-Op Insulin Drip Protocol IVPB ONE (11:35)
[2018-12-09] MEDS ORDERED: Nitroglycerin 50 MG/250 ML BOT 250 ML IVPB PRN (11:35)
[2018-12-09] MEDS ORDERED: Mag-Al 1200 mg/1200 mg/30 ML UDCUP PO PRN (11:35)
[2018-12-09] MEDS ORDERED: Bisacodyl 5 MG TAB PO PRN (11:35)
[2018-12-09] MEDS ORDERED: Promethazine HCl 25 MG/ML VIAL IM PRN (11:35)
[2018-12-09] MEDS ORDERED: Norepinephrine 8 MG/0.9% NS 250 ML IVPB PRN (11:35)
[2018-12-09] MEDS ORDERED: Ondansetron PF 4 MG/2 ML Vial IVP PRN (11:35)
[2018-12-09] MEDS ORDERED: hydrALAZINE 20 MG/ML VIAL SLOW IVP PRN (11:35)
[2018-12-09] MEDS ORDERED: Acetaminophen 325 MG TAB PO PRN (11:35)
[2018-12-09] MEDS ORDERED: Fentanyl 100 MCG/2 ML VIAL SLOW IVP PRN (11:35)
[2018-12-09] MEDS ORDERED: Dextrose 50% Abboject 50 ML SYRINGE SLOW IVP PRN (12:02)
[2018-12-09] MEDS ORDERED: Dextrose 5% in Water 1,000 ML IV PRN (12:02)
[2018-12-09] MEDS ORDERED: HUMULIN R 100 UNITS in Sodium Chloride 0.9% 100 ML IVPB SCH (12:02)
[2018-12-09] MEDS ORDERED: Insulin Regular 300 UNITS/3 ML VIAL SC PRN (12:02)
[2018-12-09 12:07] LABS: Actual Bicarbonate (HCO3a) 23.9 mEq/L (22-28); Base Excess (BEa) -1.9 mEq/L (-2.0 to +3.0); CO2 Tension 44.3 mmHg (35.0-45.0); Calcium, Ionized 1.24 mmol/L (1.12-1.30); Carboxyhemoglobin (COHb) 0.7 gm% (0.0-3.0); Hemoglobin (Hb) 13.3 g/dL (14.0-18.0); O2 Tension (PaO2) 64.7 mmHg (80.0-100.0); Potassium - ABG Lab 3.99 mmol/L (3.70-5.30); pH, Arterial 7.35 (7.35-7.45)
[2018-12-09 12:09] LABS: Puncture Site LINE
[2018-12-09 12:10] LABS: ALV-art Gradient 307.725 (0-20)
[2018-12-09 12:19] LABS: #Eosinphils 0.1 thou/uL (0.0-0.7); #Lymphocytes 1.5 thou/uL (1.20-3.40); #Monocytes 0.9 thou/uL (0.11-0.59); #Neutrophils 12.5 thou/uL (1.40-6.50); %Basophils 0.2 % (0.0-1.0); %Eosinophils 0.6 % (0.0-10.0); %Monocytes 5.9 % (0.0-10.0); %Neutrophils 83.4 % (42.0-75.0); Hemoglobin 12.9 g/dL (14.0-18.0); Mean Corpuscular Hemoglobin 29.2 pg (27.0-31.0); Mean Corpuscular Volume 85.9 fL (78.0-98.0); Mean Platelet Volume 7.8 fL (7.4-10.4); Platelet Count 170 thou/uL (130-400); RBC Distribution Width 11.6 % (11.5-14.5); Red Blood Cell (RBC) Count 4.41 mill/uL (4.70-6.10)
[2018-12-09 12:25] LABS: INR-International Normal Ratio 1.2; PTT 27.1 SEC (22.9-36.1); Prothrombin Time 15.6 SEC (12.0-14.7)
[2018-12-09] MEDS ORDERED: Morphine 2 MG/ML SYRINGE SLOW IVP PRN (12:25)
[2018-12-09] MEDS ORDERED: Magnesium 2 GM/50 ML 2 GM in Premix Bag 1 BAG IVPB SCH (12:30)
[2018-12-09 12:33] LABS: Anion Gap 11 mmol/L (10-20); BUN (Urea Nitrogen) 18 mg/dL (8.4-25.7); Calc. Creatinine Clearance 90 mL/min (70-130); Calcium 8.8 mg/dL (7.8-10.44); Carbon Dioxide 24 mmol/L (22-29); Chloride 107 mmol/L (98-107); Estimated GFR-MDRD 49; Glucose 144 mg/dL (70-105); Potassium 4.1 mmol/L (3.5-5.1); Sodium 138 mmol/L (136-145)
[2018-12-09] MEDS: Acetaminophen 1,000 MG in Premix Bag 1 BAG IVPB SCH ×3 (12:35→23:36)
--- NOTE | 2018-12-09 12:39 | RAD ---
AP CHEST: Indication: History of open heart surgery. Comparison: 10-25-18 FINDINGS: The patient has been intubated. There are new midline sternotomy changes. There are findings of inter jyotsna coronary artery bypass. There is a right subclavian central venous catheter projecting in the reg ion of the right atrium. There is a midline mediastinal drain. No pneumothorax is evident. There is m ild pulmonary vascular congestion. IMPRESSION: 1. Cardiomegaly with mild pulmonary vascular congestion may reflect volume overload or mild CHF. 2. Interval post-surgical changes of CABG. 3. Right subclavian central venous catheter, midline mediastinal drain and ET tube. 4. No pneumothorax demonstrated. POS: [facility]
[2018-12-09] MEDS ORDERED: Potassium Chloride 60 MEQ/30 ML VIAL ONE (13:05)
[2018-12-09] MEDS ORDERED: Heparin 30,000 units/30 ml VIAL ONE (13:05)
[2018-12-09] MEDS ORDERED: Mannitol 12.5 GM/50 ML ONE (13:05)
[2018-12-09] MEDS ORDERED: Rocuronium Bromide 10 MG/ML (10ML VIAL) ONE (13:05)
[2018-12-09] MEDS ORDERED: Calcium Chloride 1 GM/10 ML Abboject SYRINGE ONE (13:05)
[2018-12-09] MEDS ORDERED: Aminocaproic Acid 5 GM/20 ML VIAL ONE (13:05)
[2018-12-09] MEDS ORDERED: Thrombin 5000 UNITS/5 ML VIAL ONE (13:05)
[2018-12-09] MEDS ORDERED: Cardioplegic Soln 1,000 ML BAG ONE (13:05)
[2018-12-09] MEDS ORDERED: Papaverine 60 MG/2 ML VIAL ONE (13:05)
[2018-12-09] MEDS ORDERED: Protamine Sulfate 250 MG/25 ML VIAL ONE (13:05)
[2018-12-09] MEDS ORDERED: Magnesium 5 GM/10 ML VIAL ONE (13:05)
[2018-12-09] MEDS ORDERED: PROPOFOL 200 MG/20 ML VIAL ONE (13:05)
[2018-12-09] MEDS ORDERED: Sodium Bicarb 50 MEQ/50 ML Abboject 8.4% SYRINGE ONE (13:05)
[2018-12-09] MEDS ORDERED: Lidocaine 2% PF 100 mg/5 ml Syringe ONE (13:05)
[2018-12-09] MEDS ORDERED: Heparin 5,000 UNITS/ML VIAL ONE (13:05)
[2018-12-09] MEDS: Sodium Chloride 0.9% 1,000 ML IV SCH ×2 (13:55→21:42)
[2018-12-09 13:56] LABS: Actual Bicarbonate (HCO3a) 21.7 mEq/L (22-28); Base Excess (BEa) -2.8 mEq/L (-2.0 to +3.0); CO2 Tension 36.7 mmHg (35.0-45.0); Calcium, Ionized 1.22 mmol/L (1.12-1.30); Carboxyhemoglobin (COHb) 1.1 gm% (0.0-3.0); O2 Tension (PaO2) 63.6 mmHg (80.0-100.0); Potassium - ABG Lab 4.07 mmol/L (3.70-5.30); pH, Arterial 7.39 (7.35-7.45)
[2018-12-09 13:57] LABS: ALV-art Gradient 247.025 (0-20); Puncture Site LINE
[2018-12-09] MEDS: Fentanyl 100 MCG/2 ML VIAL SLOW IVP PRN ×3 (14:09→23:43)
[2018-12-09] MEDS: CEFAZOLIN 2 GM in Premix Bag 1 BAG IVPB SCH ×2 (14:11→21:05)
--- NOTE | 2018-12-09 14:35 | OP ---
DATE OF PROCEDURE: 12/09/2018 PREOPERATIVE DIAGNOSIS: Coronary artery disease. POSTOPERATIVE DIAGNOSIS: Coronary artery disease. PROCEDURES PERFORMED: Coronary artery bypass graft x3, left internal mammary artery to a 1.5 mm left anterior descending, saphenous vein graft good quality to 2 mm ramus, and left radial artery to a 1.5 mm obtuse marginal EXPERIMENTAL OUTBOARD MOTORS MECHANIC: Gulshan Moy MD DESCRIPTION OF PROCEDURE: After adequate anesthesia had been obtained, the patient was prepped and draped. Dr. Moy did an open vein harvest for the ramus graft while I performed a left radial artery harvest, after ensuring good collateral flow with plethysmography. A full 7 inches of radial artery was harvested, wound closed and then a median sternotomy was performed and the left internal mammary artery was harvested. The patient was heparinized. The mammary divided distally. It was passed posterior to the thymus gland. An incision was made in the pericardium to allow direct access to the LAD. Aorta and right atrium were cannulated and cardiopulmonary bypass was begun. The heart was quite large and for this reason, the entire SHANKS was utilized to graft the LAD as far as length was concerned and the radial artery came about 2 cm short of reach in the trujillo of the diagonal on the aortic root. After performing the 3 distal anastomosis, the cross-clamp was removed and the partial occluding clamp placed and the vein anastomosis performed on the aortic root and marked with a ring. The partial occluding clamp was then removed and the radial graft was anastomosed to the vein graft about 2 cm from the aortic insertion site of the vein. A suture was required in the heel of the distal radial artery graft. Following which, the patient was weaned from cardiopulmonary bypass. Cannulas were removed and the aortic cannulation site was secured with a Prolene suture. Two mediastinal drains were placed following which the sternum was reapproximated with #7 interrupted wire as well as 3 zip ties. Vancomycin paste was used on the sternal edges, platelet rich blood and platelet poor plasma. Subcutaneous tissue and skin were closed in layers and the patient is to be taken to the ICU in guarded condition. Job ID: [id number]
[2018-12-09 17:05] LABS: Hemoglobin 12.8 g/dL (14.0-18.0)
[2018-12-09] MEDS: Atorvastatin Calcium 40 MG TAB PO SCH (20:22)
[2018-12-09] MEDS: Famotidine/PF 20 mg/2ml Vial SLOW IVP SCH (20:22)
[2018-12-09 20:31] LABS: Potassium 3.7 mmol/L (3.5-5.1)
[2018-12-09] MEDS ORDERED: Pravastatin Sodium 40 MG TAB PO SCH (21:00)
[2018-12-09] MEDS ORDERED: Simvastatin 40 MG TAB PO SCH (21:00)
[2018-12-09] MEDS ORDERED: Atorvastatin Calcium 10 MG TAB PO SCH (21:00)
[2018-12-09] MEDS: Potassium Chloride 20 MEQ/100 ML PREMIX BAG IVPB PRN (21:40)
--- NOTE | 2018-12-09 22:33 | EKG ---
Test Reason : POST CABG Blood Pressure : / mmHG Vent. Rate : 058 BPM Atrial Rate : 058 BPM P-R Int : 156 ms QRS Dur : 098 ms QT Int : 444 ms P-R-T Axes : -01 000 -30 degrees QTc Int : 435 ms Sinus bradycardia Inferior infarct (cited on or before 26-OCT-2018) Abnormal ECG When compared with ECG of 26-OCT-2018 05:52, (Unconfirmed) No significant change was found Confirmed by Aixa PHILLIPS ([id number]) on 12/09/2018 10:33:34 PM Referred By: LUZ Confirmed By:Aixa PHILLIPS
[2018-12-10 04:32] LABS: #Lymphocytes 1.4 thou/uL (1.20-3.40); #Monocytes 0.9 thou/uL (0.11-0.59); #Neutrophils 8.5 thou/uL (1.40-6.50); %Basophils 0.3 % (0.0-1.0); %Eosinophils 0.1 % (0.0-10.0); %Monocytes 8.4 % (0.0-10.0); %Neutrophils 78.3 % (42.0-75.0); Hemoglobin 11.9 g/dL (14.0-18.0); Mean Corpuscular HGB CONC 33.6 g/dL (32.0-36.0); Mean Corpuscular Hemoglobin 28.9 pg (27.0-31.0); Mean Corpuscular Volume 85.8 fL (78.0-98.0); Mean Platelet Volume 7.6 fL (7.4-10.4); Platelet Count 159 thou/uL (130-400); RBC Distribution Width 11.7 % (11.5-14.5); Red Blood Cell (RBC) Count 4.13 mill/uL (4.70-6.10); White Blood Cell (WBC) Count 10.9 thou/uL (4.8-10.8)
[2018-12-10] MEDS: Fentanyl 100 MCG/2 ML VIAL SLOW IVP PRN (04:32)
[2018-12-10 04:45] LABS: Anion Gap 10 mmol/L (10-20); BUN (Urea Nitrogen) 17 mg/dL (8.4-25.7); Calc. Creatinine Clearance 99 mL/min (70-130); Carbon Dioxide 27 mmol/L (22-29); Chloride 108 mmol/L (98-107); Estimated GFR-MDRD 54; Glucose 126 mg/dL (70-105); Potassium 3.6 mmol/L (3.5-5.1); Sodium 141 mmol/L (136-145)
[2018-12-10] MEDS: Acetaminophen 1,000 MG in Premix Bag 1 BAG IVPB SCH ×2 (05:22→12:53)
[2018-12-10 05:42] VITALS: BMI 36.4
[2018-12-10] MEDS: CEFAZOLIN 2 GM in Premix Bag 1 BAG IVPB SCH (05:45)
[2018-12-10] MEDS: Potassium Chloride 20 MEQ/100 ML PREMIX BAG IVPB PRN (06:27)
--- NOTE | 2018-12-10 07:49 | RAD ---
XR Chest 1 View Portable History: [Post open heart surgery] Comparison: Radiograph prior day Findings: Patient has been extubated. Right subclavian central venous catheter is similar. Heart size is enlarged. Multiple midline sternotomy wires. The changes appear to have been removed. Trace left effusion. Impression: Interval extubation without complication.
[2018-12-10] MEDS: Aspirin 325 MG TAB PO SCH (08:40)
[2018-12-10] MEDS: glyBURIDE 2.5 MG TAB PO SCH (08:40)
[2018-12-10] MEDS: Famotidine/PF 20 mg/2ml Vial SLOW IVP SCH ×2 (08:40→19:55)
[2018-12-10] MEDS: Clopidogrel Bisulfate 75 MG TAB PO SCH (08:40)
[2018-12-10 08:58] LABS: Cardiac Risk 3.5 (Less than 4.5)
[2018-12-10] MEDS: Sodium Chloride 0.9% 1,000 ML IV SCH ×2 (10:14→17:40)
[2018-12-10] MEDS: metFORMIN 500 MG TAB PO SCH (16:59)
[2018-12-10] MEDS: HYDROcodone/Acetaminophen 5/325 mg Tablet PO PRN ×3 (17:06→23:33)
[2018-12-10] MEDS: Atorvastatin Calcium 40 MG TAB PO SCH (19:56)
--- NOTE | 2018-12-10 21:28 | CON ---
DATE OF CONSULTATION: 12/10/2018 SERVICE: Pulmonary Medicine. REASON FOR CONSULT: ICU patient. HISTORY OF PRESENT ILLNESS: The patient is a 57-year-old male with past medical history significant for coronary artery disease. He was recently in the hospital with an episode of chest discomfort. Ultimately, he was discovered to have an acute inferior ST-elevation myocardial infarction, status post bare metal stent to the RCA. He was discharged without incident, but ultimately underwent cardiac catheterization discovering multivessel disease. As such, he underwent an elective surgical revascularization procedure. The patient denies any current fevers, chills, nausea, or vomiting. Extubated very comfortably yesterday. He does not have any known lung problems like COPD or asthma. He is having some chest discomfort right now associated with the chest tubes in place. Other than that , he did not have any events overnight or fevers. PAST MEDICAL HISTORY: 1. Coronary artery disease with history of FL. 2. Hypertension. 3. Dyslipidemia. 4. Tobacco abuse. PAST SURGICAL HISTORY: 1. Cardiac catheterization with history of PCI. 2. Left knee surgery. 3. Coronary bypass graft surgery. ALLERGIES: NO KNOWN DRUG ALLERGIES. MEDICATIONS: List of his inpatient medications was reviewed. No specific updates were made at this time. SOCIAL HISTORY: Negative for alcohol or illicit drug use. He smokes a half pack of cigarettes on a daily basis and has greater than a [id number] history of smoking. FAMILY HISTORY: Noncontributory. REVIEW OF SYSTEMS: General, head, ears, eyes, nose, throat, cardiovascular, respiratory, GI, , musculoskeletal, neurologic, and skin are negative except as mentioned in the HPI. PHYSICAL EXAMINATION: VITAL SIGNS: Afebrile, pulse 66, blood pressure 107/81, respirations 17, saturation 95% on 5 L nasal cannula. GENERAL: The patient is awake and alert, in no apparent distress. LUNGS: Excellent air entry without any prolonged expiratory phase or wheezing present. HEART: Normal rate, regular. ABDOMEN: Soft, nontender, and nondistended. Bowel sounds are hypoactive. GENITOURINARY: Brewster catheter in place. NEUROLOGICAL: Grossly nonfocal. LABORATORY DATA: WBC 10.9 and downtrending, hemoglobin 11.9 and stable, platelets 159,000. INR 1.2. PH 7.39, pCO2 37, PO2 64. Blood sugar ranges from 100 to 122. Creatinine 1.35, which is gently downtrending. Electrolytes are otherwise unremarkable. IMAGING: Chest x-ray demonstrates sternotomy wires. Interval extubation. No pneumothorax is appreciated. Small left-sided effusion is noted. Mediastinal drains are present. Right subclavian central venous catheter is in good position. ASSESSMENT: 1. Acute hypoxic respiratory failure. 2. Coronary artery disease, status post coronary artery bypass graft, postop day 1. 3. Type 2 diabetes mellitus. DISCUSSION AND PLAN: We will begin our mobilization efforts. Pulmonary Critical Care will continue to follow along as long as the patient remains inhouse. He has just been weaned off the dopamine. If he tolerates this well for an extended period of time, IV fluids can likely be interrupted. 70 minutes have been devoted to this patient in various activities. I personally reviewed all imaging studies and laboratory data noted within this document. For fifty percent of this time, I was interacting with the patient at the bedside or coordinating care with the care team. For the remainder of the time I was immediately available to the patient in the hospital unit. Job ID: [id number] MTDD
[2018-12-11] MEDS: HYDROcodone/Acetaminophen 5/325 mg Tablet PO PRN ×3 (03:28→16:05)
[2018-12-11] MEDS: Sodium Chloride 0.9% 1,000 ML IV SCH (04:48)
[2018-12-11 05:27] LABS: #Lymphocytes 1.6 thou/uL (1.20-3.40); #Monocytes 0.9 thou/uL (0.11-0.59); #Neutrophils 7.5 thou/uL (1.40-6.50); %Basophils 0.1 % (0.0-1.0); %Eosinophils 0.3 % (0.0-10.0); %Lymphocytes 16.2 % (21.0-51.0); %Monocytes 9.3 % (0.0-10.0); %Neutrophils 74.1 % (42.0-75.0); Hemoglobin 11.4 g/dL (14.0-18.0); Mean Corpuscular HGB CONC 33.9 g/dL (32.0-36.0); Mean Corpuscular Volume 85.7 fL (78.0-98.0); Mean Platelet Volume 7.6 fL (7.4-10.4); Platelet Count 144 thou/uL (130-400); RBC Distribution Width 11.7 % (11.5-14.5); Red Blood Cell (RBC) Count 3.92 mill/uL (4.70-6.10); White Blood Cell (WBC) Count 10.1 thou/uL (4.8-10.8)
[2018-12-11 05:45] LABS: Anion Gap 12 mmol/L (10-20); BUN (Urea Nitrogen) 17 mg/dL (8.4-25.7); Calc. Creatinine Clearance 97 mL/min (70-130); Calcium 9.3 mg/dL (7.8-10.44); Carbon Dioxide 26 mmol/L (22-29); Chloride 107 mmol/L (98-107); Estimated GFR-MDRD 54; Glucose 106 mg/dL (70-105); Potassium 3.7 mmol/L (3.5-5.1); Sodium 141 mmol/L (136-145)
[2018-12-11] MEDS: Potassium Chloride 20 MEQ/100 ML PREMIX BAG IVPB PRN (06:53)
--- NOTE | 2018-12-11 07:36 | RAD ---
Portable chest radiograph: 12/11/2018 COMPARISON: 12/10/2018 HISTORY:Evaluate chest following open heart surgery FINDINGS: Stable midline sternotomy wires and enlargement of the cardiac silhouette. Stable right vas cular catheter. Opacity in the left base suggests partial consolidation/collapse and/or small volume left pleural fluid. No pneumothorax. Right lung appears clear. IMPRESSION: Lines and tubes as detailed above. Increased density within left base noted.
[2018-12-11] MEDS: metFORMIN 500 MG TAB PO SCH ×2 (07:41→20:09)
[2018-12-11] MEDS: glyBURIDE 2.5 MG TAB PO SCH (08:58)
[2018-12-11] MEDS: Aspirin 325 MG TAB PO SCH (08:58)
[2018-12-11] MEDS: Famotidine/PF 20 mg/2ml Vial SLOW IVP SCH (08:59)
[2018-12-11] MEDS: Clopidogrel Bisulfate 75 MG TAB PO SCH (08:59)
[2018-12-11 09:30] LABS: Actual Bicarbonate (HCO3a) 23.7 mEq/L (22-28); Analyzer IN Cardio OR; Base Excess (BEa) -1.9 mEq/L (-2.0 to +3.0); CO2 Tension 43.9 mmHg (35.0-45.0); Calcium, Ionized 1.22 mmol/L (1.12-1.30); Carboxyhemoglobin (COHb) 0.6 gm% (0.0-3.0); Hemoglobin (Hb) 12.9 g/dL (14.0-18.0); O2 Tension (PaO2) 208.9 mmHg (80.0-100.0); Potassium - ABG Lab 3.75 mmol/L (3.70-5.30); pH, Arterial 7.35 (7.35-7.45)
[2018-12-11 09:31] LABS: Actual Bicarbonate (HCO3a) 24.1 mEq/L (22-28); Analyzer IN Cardio OR; Base Excess (BEa) -1.9 mEq/L (-2.0 to +3.0); CO2 Tension 46.4 mmHg (35.0-45.0); Calcium, Ionized 1.17 mmol/L (1.12-1.30); Carboxyhemoglobin (COHb) 0.3 gm% (0.0-3.0); Hemoglobin (Hb) 11.1 g/dL (14.0-18.0); Potassium - ABG Lab 4.46 mmol/L (3.70-5.30); pH, Arterial 7.33 (7.35-7.45)
[2018-12-11 09:31] LABS: Actual Bicarbonate (HCO3v) 25 mEq/L (22-28); Analyzer IN Cardio OR; Base Excess -1.6 mEq/L (-2.0 to +3.0); Calcium, Ionized 1.18 mmol/L (1.16-1.32); Chloride (ABG LAB) 103 mmol/L (98-106); Hemoglobin (Hb) 11.1 g/dL (13.1-17.2); Potassium - ABG Lab 4.45 mmol/L (3.70-5.30); Sodium 135.8 mmol/L (133-146); pH (venous) 7.31 (7.32-7.43)
[2018-12-11 09:31] LABS: Actual Bicarbonate (HCO3a) 24.8 mEq/L (22-28); Analyzer IN Cardio OR; Base Excess (BEa) -0.6 mEq/L (-2.0 to +3.0); CO2 Tension 43.9 mmHg (35.0-45.0); Calcium, Ionized 1.19 mmol/L (1.12-1.30); Hemoglobin (Hb) 12.6 g/dL (14.0-18.0); Potassium - ABG Lab 4.07 mmol/L (3.70-5.30); pH, Arterial 7.37 (7.35-7.45)
[2018-12-11 09:32] LABS: Actual Bicarbonate (HCO3v) 25 mEq/L (22-28); Analyzer IN Cardio OR; Base Excess -1.2 mEq/L (-2.0 to +3.0); Calcium, Ionized 1.16 mmol/L (1.16-1.32); Chloride (ABG LAB) 103 mmol/L (98-106); Hemoglobin (Hb) 11.2 g/dL (13.1-17.2); Potassium - ABG Lab 4.61 mmol/L (3.70-5.30); pH (venous) 7.33 (7.32-7.43)
[2018-12-11 09:32] LABS: Actual Bicarbonate (HCO3a) 24.2 mEq/L (22-28); Analyzer IN Cardio OR; Base Excess (BEa) -1.3 mEq/L (-2.0 to +3.0); CO2 Tension 43.6 mmHg (35.0-45.0); Calcium, Ionized 1.14 mmol/L (1.12-1.30); Carboxyhemoglobin (COHb) 0.3 gm% (0.0-3.0); Hemoglobin (Hb) 10.9 g/dL (14.0-18.0); O2 Tension (PaO2) 256.7 mmHg (80.0-100.0); Potassium - ABG Lab 4.57 mmol/L (3.70-5.30); pH, Arterial 7.36 (7.35-7.45)
[2018-12-11 09:33] LABS: Actual Bicarbonate (HCO3a) 22.8 mEq/L (22-28); Analyzer IN Cardio OR; Base Excess (BEa) -2.7 mEq/L (-2.0 to +3.0); CO2 Tension 42.3 mmHg (35.0-45.0); Calcium, Ionized 1.23 mmol/L (1.12-1.30); Carboxyhemoglobin (COHb) 0.5 gm% (0.0-3.0); Hemoglobin (Hb) 12.4 g/dL (14.0-18.0); O2 Tension (PaO2) 109.4 mmHg (80.0-100.0); Potassium - ABG Lab 4.08 mmol/L (3.70-5.30); pH, Arterial 7.35 (7.35-7.45)
[2018-12-11 09:39] LABS: Puncture Site ALINE
[2018-12-11 09:41] LABS: Puncture Site ALINE
[2018-12-11 09:41] LABS: Puncture Site ALINE
[2018-12-11 09:42] LABS: Puncture Site ALINE
[2018-12-11 09:43] LABS: Puncture Site ALINE
[2018-12-11] MEDS ORDERED: Fentanyl 100 MCG/2 ML VIAL SLOW IVP PRN (10:00)
[2018-12-11] MEDS ORDERED: Bisacodyl 5 MG TAB PO PRN (10:00)
[2018-12-11] MEDS ORDERED: Guaifenesin DM 100-10/5 ML UDCUP PO PRN (10:00)
[2018-12-11] MEDS ORDERED: HYDROcodone/Acetaminophen 5/325 mg Tablet PO PRN (10:00)
[2018-12-11] MEDS ORDERED: Mag-Al 1200 mg/1200 mg/30 ML UDCUP PO PRN (10:00)
[2018-12-11] MEDS ORDERED: Nitroglycerin 0.4 MG TAB (25 Tab Bottle) SL PRN (10:00)
[2018-12-11] MEDS ORDERED: Bisacodyl 10 MG SUPP PR PRN (10:00)
[2018-12-11] MEDS ORDERED: Mineral Oil ENEMA PR PRN (10:00)
[2018-12-11] MEDS ORDERED: Acetaminophen 325 MG TAB PO PRN (10:00)
[2018-12-11] MEDS ORDERED: Ondansetron PF 4 MG/2 ML Vial IVP PRN (10:00)
[2018-12-11] MEDS ORDERED: Insulin Regular 300 UNITS/3 ML VIAL SC PRN (10:16)
[2018-12-11] MEDS ORDERED: Dextrose 5% in Water 1,000 ML IV PRN (10:16)
[2018-12-11] MEDS ORDERED: Dextrose 50% Abboject 50 ML SYRINGE SLOW IVP PRN (10:16)
[2018-12-11] MEDS ORDERED: Aspirin 325 mg Enteric Coated Tablet PO SCH (10:30)
[2018-12-11] MEDS ORDERED: Potassium Chloride 10 MEQ TAB PO SCH (10:30)
[2018-12-11] MEDS ORDERED: Polyethylene Glycol 3350 17 GM Packet PO SCH (10:30)
[2018-12-11] MEDS ORDERED: Famotidine 20 MG TAB PO SCH (10:30)
[2018-12-11] MEDS ORDERED: Furosemide 20 MG TAB PO SCH (10:30)
--- NOTE | 2018-12-11 16:40 | PRG ---
DATE OF SERVICE: 12/11/2018 SERVICE: Pulmonary Medicine. INTERVAL HISTORY: The patient is doing fine from respiratory standpoint. Breathing comfortably. Denies any current chest pain, fevers, chills, nausea, vomiting, or diarrhea. Otherwise, there has been no interval change to his condition. He indicates likely having sleep apnea. He has been told before that he hold his breath and gasping in the middle of the sleep. He has nocturia x1, and frequently falls asleep doing things. PHYSICAL EXAMINATION: VITAL SIGNS: Afebrile with a T-max of 99.8, pulse 64, blood pressure 127/83, respirations 24, and saturation is 94% on 2 L nasal cannula. GENERAL: The patient is awake and alert, in no apparent distress. LUNGS: Decent air entry. Minimal dependent crackles are present. No prolonged expiratory phase or wheezing is appreciated. HEART: Normal rate and regular. ABDOMEN: Soft, nontender, and nondistended. Bowel sounds are positive. MUSCULOSKELETAL: No cyanosis or clubbing. No pitting in bilateral lower extremities. NEUROLOGIC: Grossly nonfocal. LABORATORY DATA: WBC 10.1, hemoglobin 11.4, and platelets 144,000. Creatinine 1.36, roughly stable. Blood sugar ranges from 48 up to 106. IMAGING: Chest x-ray demonstrates withdrawal of mediastinal drains. Cardiac silhouette is enlarged. The carinal angle is also enlarged. If there is a pleural parenchymal change in the left, it cannot be seen. A little bit of volume overload and cephalization is noted on this AP film. ASSESSMENT: 1. Acute hypoxic respiratory failure. 2. Coronary artery disease, status post coronary artery bypass graft, postop day #2. 3. Type 2 diabetes mellitus. 4. Obstructive sleep apnea, suspected. DISCUSSION AND PLAN: The patient is doing great in the postoperative period. I will stop his IV fluids and give him a small dose of Lasix today. I will have him return to clinic to see me in the outpatient setting, so that we can set him for a polysomnogram after he heals up from the surgical procedure as he is interested in pursuing that diagnosis. I will continue to follow for the time being. Job ID: [id number]
[2018-12-11] MEDS: Famotidine 20 MG TAB PO SCH (19:54)
[2018-12-11] MEDS: Atorvastatin Calcium 40 MG TAB PO SCH (19:54)
[2018-12-12] MEDS: HYDROcodone/Acetaminophen 5/325 mg Tablet PO PRN ×3 (05:31→21:52)
[2018-12-12 06:03] LABS: Anion Gap 10 mmol/L (10-20); BUN (Urea Nitrogen) 20 mg/dL (8.4-25.7); Calc. Creatinine Clearance 94 mL/min (70-130); Calcium 9.7 mg/dL (7.8-10.44); Carbon Dioxide 29 mmol/L (22-29); Chloride 104 mmol/L (98-107); Estimated GFR-MDRD 53; Glucose 94 mg/dL (70-105); Potassium 3.9 mmol/L (3.5-5.1); Sodium 139 mmol/L (136-145)
[2018-12-12] MEDS ORDERED: Furosemide 20 MG TAB PO SCH (09:00)
[2018-12-12] MEDS: Aspirin 325 mg Enteric Coated Tablet PO SCH (10:07)
[2018-12-12] MEDS: Potassium Chloride 10 MEQ TAB PO SCH (10:07)
[2018-12-12] MEDS: Famotidine 20 MG TAB PO SCH ×2 (10:08→20:13)
[2018-12-12] MEDS: Furosemide 40 MG TAB PO SCH (10:08)
[2018-12-12] MEDS: Polyethylene Glycol 3350 17 GM Packet PO SCH (10:09)
[2018-12-12] MEDS: metFORMIN 500 MG TAB PO SCH ×2 (10:09→20:13)
[2018-12-12] MEDS: Clopidogrel Bisulfate 75 MG TAB PO SCH (10:09)
--- NOTE | 2018-12-12 12:25 | PRG ---
DATE OF SERVICE: 12/12/2018 SERVICE: Pulmonary Medicine. INTERVAL HISTORY: The patient is doing fine from respiratory standpoint. No fevers, chills, nausea, vomiting, or diarrhea. Otherwise, there has been no interval change to his condition. PHYSICAL EXAMINATION: VITAL SIGNS: Afebrile, pulse 63, blood pressure 129/88, respirations 18, and saturation 92% on room air. GENERAL: The patient is awake and alert, in no apparent distress. LUNGS: Excellent air entry with no prolonged expiratory phase or wheezing present. HEART: Normal rate, regular. ABDOMEN: Soft, nontender, and nondistended. Bowel sounds are positive. MUSCULOSKELETAL: No cyanosis or clubbing. No pitting in bilateral lower extremities. NEUROLOGIC: Grossly nonfocal. LABORATORY DATA: Basic metabolic profile is essentially unremarkable with a stable creatinine of 1.37. ASSESSMENT: 1. Acute hypoxic respiratory failure, resolved. 2. Coronary artery disease, status post coronary artery bypass graft, postop day 3. 3. Type 2 diabetes mellitus. 4. Obstructive sleep apnea, suspected. 5. 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 DISCUSSION AND PLAN: The patient is doing absolutely fantastic from respiratory standpoint. At this point, he has no further requirements for inpatient Pulmonary or Critical Care opinion, and I will sign off. I will see him in the outpatient setting to set up a polysomnogram. We will arrange for this to occur. Job ID: [id number]
[2018-12-12] MEDS: Atorvastatin Calcium 40 MG TAB PO SCH (20:13)
[2018-12-13] MEDS: Famotidine 20 MG TAB PO SCH ×2 (08:39→19:49)
[2018-12-13] MEDS: Potassium Chloride 10 MEQ TAB PO SCH (08:39)
[2018-12-13] MEDS: Furosemide 40 MG TAB PO SCH (08:39)
[2018-12-13] MEDS: Aspirin 325 mg Enteric Coated Tablet PO SCH (08:39)
[2018-12-13] MEDS: metFORMIN 500 MG TAB PO SCH ×2 (08:39→17:01)
[2018-12-13] MEDS: Clopidogrel Bisulfate 75 MG TAB PO SCH (08:39)
[2018-12-13] MEDS: Polyethylene Glycol 3350 17 GM Packet PO SCH (08:40)
--- NOTE | 2018-12-13 13:49 | PDOC.CTH ---
Cardiology Progress Note - Subjective The pt seen and examined. No overnight events. No cardiac complaints. - Objective Vital Signs Temp Pulse Pulse Pulse Resp BP BP 12/13/18 12:40 68 16 12/13/18 08:57 69 66 144/87 H 125/81 12/13/18 07:50 97.8 F 76 16 12/13/18 04:00 98.8 F 63 18 BP Pulse Ox 12/13/18 12:40 125/71 96 12/13/18 08:57 12/13/18 07:50 121/86 96 12/13/18 04:00 138/87 94 L Weight 249 lb 3.2 oz 12/12/18 12/13/18 12/14/18 06:59 06:59 06:59 Intake Total 1250 100 Output Total 820 1400 Balance 430 -1300 - Physical Examination General/Neuro: alert & oriented x3 Neck: no JVD present Lungs: CTA Heart: RRR Abdomen: soft Extremities: other: (No edema) - Telemetry Telemetry Rhythm: SR - Labs Result Diagrams: 12/11/18 05:10 12/12/18 05:26 - Assessment/Plan 1. CAD with s/p BMS in RCA in 10/2018 and S/p CABG x3 on 12/09/2018 with SHANKS- LAD, SVG-ramus, and Lt radial-OM - stable; On ASA 325mg qd, Plavix, and Lipitor 40mg qd; will start bblocker with his VS, especially stable HR 2. HTN - stable 3. DM type 2 - 4. Suspected SEB - 5. CKD stage 2 - unchanged MAR reviewed Pt. seen and eval. by me. I agree with the A/P by the THREAD CUTTER TENDER. Chest clear. RRR. Review of Systems - Review of Systems Constitutional: reports: no symptoms reported EENTM: reports: no symptoms reported Respiratory: reports: no symptoms reported Cardiac (ROS): reports: no symptoms reported ABD/GI: reports: no symptoms reported : reports: no symptoms reported Musculoskeletal: reports: no symptoms reported
[2018-12-13] MEDS: HYDROcodone/Acetaminophen 5/325 mg Tablet PO PRN (19:49)
[2018-12-13] MEDS: Atorvastatin Calcium 40 MG TAB PO SCH (19:50)
[2018-12-14] MEDS ORDERED: Sodium Chloride 0.9% 10 ML ONE (07:45)
[2018-12-14] MEDS: Clopidogrel Bisulfate 75 MG TAB PO SCH (08:05)
[2018-12-14] MEDS: metFORMIN 500 MG TAB PO SCH (08:05)
[2018-12-14] MEDS: Potassium Chloride 10 MEQ TAB PO SCH (08:05)
[2018-12-14] MEDS: Aspirin 325 mg Enteric Coated Tablet PO SCH (08:05)
[2018-12-14] MEDS: Famotidine 20 MG TAB PO SCH (08:05)
[2018-12-14] MEDS: Furosemide 40 MG TAB PO SCH (08:06)
[2018-12-14] MEDS: Polyethylene Glycol 3350 17 GM Packet PO SCH (08:06)
[2018-12-14 12:33] VITALS: BP 104/68; TEMP 97.4
--- NOTE | 2018-12-14 17:19 | PDOC.CTH ---
Cardiology Progress Note - Subjective The pt seen and examined. No overnight events. No cardiac complaints. - Objective Vital Signs Temp Pulse Resp BP Pulse Ox 12/14/18 12:31 97.4 F L 65 18 104/68 97 12/14/18 07:53 98.3 F 61 17 120/70 95 Weight 245 lb 8 oz 12/13/18 12/14/18 12/15/18 06:59 06:59 06:59 Intake Total 100 480 Output Total 1400 950 Balance -1300 -470 - Physical Examination General/Neuro: alert & oriented x3 Neck: no JVD present Lungs: CTA Heart: RRR Abdomen: soft Extremities: other: (No edema) - Telemetry Telemetry Rhythm: SR - Labs Result Diagrams: 12/11/18 05:10 12/12/18 05:26 - Assessment/Plan 1. CAD with s/p BMS in RCA in 10/2018 and S/p CABG x3 on 12/09/2018 with SHANKS- LAD, SVG-ramus, and Lt radial-OM - stable; On ASA 325mg qd, Plavix, and Lipitor 40mg qd; will start bblocker with stable VS, especially stable HR 2. HTN - stable 3. DM type 2 - 4. Suspected SEB - 5. CKD stage 2 - unchanged 6. Tobacco abuse - smoking cessation education given to the pt MAR reviewed * Dr Cazares's pt Review of Systems - Review of Systems Constitutional: reports: no symptoms reported EENTM: reports: no symptoms reported Respiratory: reports: no symptoms reported Cardiac (ROS): reports: no symptoms reported ABD/GI: reports: no symptoms reported : reports: no symptoms reported Musculoskeletal: reports: no symptoms reported Skin: reports: no symptoms reported
--- NOTE | 2018-12-14 23:47 | DIS ---
DATE OF ADMISSION: 12/09/2018 DATE OF DISCHARGE: 12/14/2018 PRINCIPAL DIAGNOSIS: Coronary artery disease. PROCEDURES PERFORMED: Coronary artery bypass grafting x3 with left internal mammary artery to the LAD, left radial artery from the aorta to the obtuse marginal, and reverse greater saphenous vein graft from the aorta to the ramus intermedius. HISTORY OF PRESENT ILLNESS AND HOSPITAL COURSE: On 12/09/2018, the patient is a 57-year-old diabetic man who underwent stenting of an acutely occluded right coronary artery when he presented with myocardial infarction little over a month ago. He had residual left-sided disease and was electively admitted off Plavix for coronary artery bypass grafting. He initially was pressor dependent that was weaned off. On postoperative day #1, he was transferred to the floor. On postoperative day #2, his level of activity gradually increased. He is now being discharged home on postoperative day #5. Job ID: [id number]
== END 2018-12-14 15:13 | disposition home or self-care (01) | DRG 235 ==
LOC: SURG A 12-09 05:53 → CCU 12-09 11:51 → EDSTATUS 12-09 12:00 → 2NO 12-11 16:42
PROVIDERS: ADMIT Thoracic Surgery (Cardiothoracic Vascular Surgery); ATTEND Thoracic Surgery (Cardiothoracic Vascular Surgery)
PROC: 02100Z9 Bypass Coronary Artery, One Artery from Left Internal Mammary, Open Approach (ICD-10-PCS; principal; 2018-12-09)
PROC: 02100AW Bypass Coronary Artery, One Artery from Aorta with Autologous Arterial Tissue, Open Approach (ICD-10-PCS; 2018-12-09)
PROC: 021009W Bypass Coronary Artery, One Artery from Aorta with Autologous Venous Tissue, Open Approach (ICD-10-PCS; 2018-12-09)
PROC: 03BC0ZZ Excision of Left Radial Artery, Open Approach (ICD-10-PCS; 2018-12-09)
PROC: 06BQ0ZZ Excision of Left Saphenous Vein, Open Approach (ICD-10-PCS; 2018-12-09)
PROC: 5A1221Z Performance of Cardiac Output, Continuous (ICD-10-PCS; 2018-12-09)
DX: I25.110 Atherosclerotic heart disease of native coronary artery with unstable angina pectoris (principal); J96.01 Acute respiratory failure with hypoxia; F17.210 Nicotine dependence, cigarettes, uncomplicated; E78.00 Pure hypercholesterolemia, unspecified; E11.22 Type 2 diabetes mellitus with diabetic chronic kidney disease; I12.9 Hypertensive chronic kidney disease with stage 1 through stage 4 chronic kidney disease, or unspecified chronic kidney disease; N18.2 Chronic kidney disease, stage 2 (mild); I25.2 Old myocardial infarction; G47.33 Obstructive sleep apnea (adult) (pediatric); Z95.5 Presence of coronary angioplasty implant and graft; Z79.84 Long term (current) use of oral hypoglycemic drugs; Z79.02 Long term (current) use of antithrombotics/antiplatelets; Z79.82 Long term (current) use of aspirin
CPT/HCPCS: 36415; 36416; 36430; 71045; 80048; 80061; 82805; 82947; 85025; 85027; 85610; 85730; 86850; 86900; 86901; 93005; 93010; 93798; 94002; 94150; J0131; J0360; J0670; J0690; J1100; J1265; J1642; J1644; J1815; J2001; J2150; J2250; J2440; J2704; J2720; J3010; J3370; J3475; J3480; J3490; J7050; P9045; S0017; S0028

== ENCOUNTER 2018-12-25 19:45 | Observation (INO) | payer SELFPAY ==
[2018-12-25] MEDS ORDERED: hydrALAZINE 20 MG/ML VIAL SLOW IVP PRN (20:53)
[2018-12-25] MEDS ORDERED: HYDROcodone/Acetaminophen 5/325 mg Tablet PO PRN (20:54)
[2018-12-25] MEDS ORDERED: Acetaminophen 325 MG TAB PO PRN (20:57)
[2018-12-25] MEDS ORDERED: Ondansetron ODT 4 MG TAB PO PRN (20:57)
[2018-12-25] MEDS ORDERED: Ondansetron PF 4 MG/2 ML Vial IVP PRN (20:57)
[2018-12-25] MEDS ORDERED: Pravastatin Sodium 40 MG TAB PO SCH (21:00)
[2018-12-25 22:53] VITALS: TEMP 98.6
[2018-12-25 23:12] VITALS: BMI 35.2
[2018-12-25 23:58] LABS: Troponin I 0.139 ng/mL (< 0.028)
[2018-12-26] MEDS: busPIRone HCl 10 MG TAB PO SCH ×2 (00:50→11:24)
--- NOTE | 2018-12-26 01:45 | HP ---
PRIMARY CARE DOCTOR: HADLEY Stewart CODE STATUS: Full code. TIME OF EVALUATION: 08:20 p.m. CHIEF COMPLAINT: Headache. HISTORY OF PRESENT ILLNESS: This is a 57-year-old male patient, came to the hospital after having hypertension, blood pressure was very high, associated with headache. The patient is noted to have a CABG that was done 2 weeks ago. He denies any chest pain by the time the blood pressure was high, he was not taking any blood pressure medication post surgery, reported he was not aware that he has taken it. Symptoms were severe. The symptoms have got better after blood pressure came down, no clear triggers, these symptoms are of sudden onset and started prior to arrival to the hospital. REVIEW OF SYSTEMS: CONSTITUTIONAL: No fever, chills, or generalized weakness. RESPIRATORY: No cough, sputum production, or shortness of breath. CARDIOVASCULAR: No chest pain or palpitation. GASTROINTESTINAL: No nausea, no vomiting diarrhea or abdominal pain. POWER GENERATING PLANT OPERATOR: The patient has headache, associated with high blood pressure. No dizziness or feeling lightheaded. GENITOURINARY: No burning on urination. EXTREMITIES: No leg swelling. All other systems reviewed are negative except for the findings mentioned above. PAST MEDICAL HISTORY: Positive for coronary artery disease, status post CABG on 12/14, he also had a stent placement in 2011, hyperlipidemia, hypertension, meningitis. SURGICAL HISTORY: CABG on 12/14, knee surgery in 1975 and cardiac stent x2 in 2011. FAMILY HISTORY: Reviewed, noncontributory to this case. PSYCH HISTORY: The patient reported having history of anxiety and panic attacks. SOCIAL HISTORY: No alcohol. Former tobacco user. Lives at home with family. KNOWN ALLERGIES: No known drug allergies. REPORTED MEDICATIONS: 1. Lisinopril. 2. Buspirone. 3. Metformin. 4. Aspirin. 5. Pravastatin. 6. Plavix. 7. Glyburide. 8. Protonix. PHYSICAL EXAMINATION: VITAL SIGNS: On presentation, blood pressure 146/96, heart rate 61, respiratory rate was 16, temperature 98.5. Pain was 5/10. Oxygen saturation was 97% on room air. GENERAL APPEARANCE: The patient is alert, oriented, not in acute distress. HEENT: Eyes, normal conjunctivae. Moist oral mucosa. Anicteric. No JVD. RESPIRATORY: Bilateral air entry. No rales. No wheezes. Symmetric expansion. CARDIOVASCULAR: Normal rate, regular rhythm. No murmurs. No gallop. No edema. Blood pressure was on the high side, more controlled now. ABDOMEN: Soft. Normal bowel sounds. MUSCULOSKELETAL: Baseline range of motion and strength. No tenderness. Skin is warm, intact. No pallor. No rash. No redness. Peripheral pulses are present. Capillary refill seems to be intact. NEURO: No evidence of any new focal weakness. Baseline speech. Cranial nerves seems to be intact. PSYCH: The patient is in good mood. No anxiety. Optimal judgment. IMAGING: EKG, the patient has sinus bradycardia at the rate of 55, CA 172, QRS 94, low-voltage QRS, QT corrected 432. Brain CT was done, the patient had no acute findings. Chest x-ray was done, the patient had no acute findings. LABORATORY DATA: Labs were reviewed. Troponin initially was 0.14, second one 0.139. Hematology; white count 5.9, hemoglobin 11.1, MCV 84.4, platelet count 283. Chemistry; sodium 140, potassium 4.1, chloride 106, carbon dioxide 23, anion gap 15, BUN 19, GFR 48, creatinine 1.5, on previous admission it was 1.3. Magnesium 2.1. Total bilirubin 0.3. LFTs were normal. Albumin 3.9. ASSESSMENT AND PLAN: The patient will be placed in the hospital with following medical problems: 1. Hypertensive emergency. The patient presented with very high blood pressure and severe headache, associated with high blood pressure and also some mild leak of troponin. These all seems to be related to higher levels of blood pressure. After blood pressure has been corrected, the patient's headache improved. Also his troponins are trending down. We will place the patient on blood pressure medications. Reconcile home medications, started on Coreg. Dr. Cazares is his net sql developer, in case we need to consult him if the patient does not get better. 2. Cno-[id number] myocardial infarction likely x2. Since there is a leak of troponin, troponins are in the range of 0.139 last one, this is likely secondary to hypertensive emergency. We will treat the underlying etiology. 3. Chronic kidney disease, stage 3. Monitor kidney function, adjust treatment as needed. 4. Hyperlipidemia. Low-cholesterol diet is advised. Reconcile home medications. Job ID: [id number] [facility]
[2018-12-26 02:25] LABS: #Eosinphils 0.2 thou/uL (0.0-0.7); #Lymphocytes 2.1 thou/uL (1.20-3.40); #Monocytes 0.4 thou/uL (0.11-0.59); #Neutrophils 3.1 thou/uL (1.40-6.50); %Basophils 0.6 % (0.0-1.0); %Lymphocytes 35.6 % (21.0-51.0); %Monocytes 7.1 % (0.0-10.0); %Neutrophils 53.6 % (42.0-75.0); Hemoglobin 11.4 g/dL (14.0-18.0); Mean Corpuscular Hemoglobin 28.5 pg (27.0-31.0); Mean Corpuscular Volume 83.9 fL (78.0-98.0); Platelet Count 263 thou/uL (130-400); RBC Distribution Width 11.3 % (11.5-14.5); Red Blood Cell (RBC) Count 4.01 mill/uL (4.70-6.10); White Blood Cell (WBC) Count 5.8 thou/uL (4.8-10.8)
[2018-12-26 02:48] LABS: Troponin I 0.133 ng/mL (< 0.028)
[2018-12-26 03:26] LABS: Anion Gap 12 mmol/L (10-20); BUN (Urea Nitrogen) 18 mg/dL (8.4-25.7); Calc. Creatinine Clearance 81 mL/min (70-130); Calcium 10.3 mg/dL (7.8-10.44); Carbon Dioxide 27 mmol/L (22-29); Chloride 105 mmol/L (98-107); Estimated GFR-MDRD 46; Glucose 123 mg/dL (70-105); Potassium 3.8 mmol/L (3.5-5.1); Sodium 140 mmol/L (136-145)
[2018-12-26 03:37] VITALS: BP 118/81
[2018-12-26] MEDS ORDERED: Carvedilol 3.125 MG TAB PO SCH (08:00)
[2018-12-26] MEDS ORDERED: Aspirin 325 MG TAB PO SCH (09:00)
[2018-12-26] MEDS ORDERED: Clopidogrel Bisulfate 75 MG TAB PO SCH (09:00)
[2018-12-26] MEDS ORDERED: Enoxaparin Sodium 40 MG/0.4 ML SYRINGE SC SCH (09:00)
[2018-12-26] MEDS ORDERED: Enoxaparin Sodium 40 MG/0.4 ML SYRINGE ONE (09:29)
[2018-12-26] MEDS ORDERED: Aspirin 325 MG TAB ONE (09:29)
[2018-12-26] MEDS ORDERED: Clopidogrel Bisulfate 75 MG TAB ONE (09:29)
--- NOTE | 2018-12-26 13:52 | DIS ---
DATE OF ADMISSION: 12/25/2018 DATE OF DISCHARGE: 12/26/2018 ALLERGIES: NO KNOWN DRUG ALLERGIES. CHIEF COMPLAINT: High blood pressure and headache. FINAL DIAGNOSES: 1. Accelerated hypertension, resolved. 2. Demand ischemia secondary to above. 3. Coronary artery disease, status post bare-metal stent in the right coronary artery in October 2018 and status post recent coronary artery bypass graft x3 on December 09, 2018, with left internal mammary artery to the left anterior descending, saphenous vein graft to the ramus and left radial to the obtuse marginal. 4. Type 2 diabetes mellitus. 5. 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 6. Anxiety. 7. Sinus bradycardia. PROCEDURE PERFORMED: None. LAB RESULTS: White blood cell count 5.8, hemoglobin 11.4, hematocrit 33.6, MCV 83.9, and platelets 263. Sodium 140, potassium 3.8, chloride 105, carbon dioxide 27, anion gap 12, BUN 18, and creatinine 1.57. Troponin 0.14, 0.139, 0.133 respectively. IMAGING RESULTS: EKG shows sinus rhythm, no dynamic ST- or T-wave changes. Chest x-ray shows no acute findings. Brain CT showed no acute findings. VITAL SIGNS: Blood pressure 120/87, pulse equals 53, and O2 saturation is 95% on room air. HOSPITAL COURSE: The patient is a very pleasant 57-year-old male with past medical history significant for recent NC in October 2018 with bare-metal stent placed to the RCA, and subsequent 3-vessel CAB[address] Dr. Joyner after appropriate anti-platelet therapy, who presented to the ER in [place] with complaints of headache and high blood pressure. On arrival to the ER, his blood pressure was in the 190 systolic. He was given 10 mg of Norvasc, 20 mg of lisinopril, and 25 mg of hydrochlorothiazide with good response to his blood pressure. Given his demand ischemia, he was transferred to our facility for higher level of care. Upon his discharge on December 14, 2018, from this facility after his bypass surgery, indeed his home medications of amlodipine, lisinopril, and hydrochlorothiazide were stopped. I suspect that this is likely secondary to postoperative hypotension and that his blood pressure at the time of discharge would not tolerate his home medications. Because his discharge paperwork said to stop these medications, he did indeed stop them. He has been feeling well since his discharge from the hospital after his surgery, he has been participating in cardiac rehab on a regular basis, and feels well. He has no chest pain or shortness of breath during his sessions. His only complaints besides his high blood pressure readings at home were headache, which did resolve after his blood pressure came down. Upon my interview this morning, all of his presenting symptoms have resolved. His blood pressure has remained in the one teens and 120s since he was given his blood pressure medications in [place]. We have not had to give him any p.r.n. medications and his blood pressure has been well controlled. The patient has no complaints. He denies chest pain, shortness of breath, nausea or vomiting. He denies headache. PHYSICAL EXAMINATION: GENERAL: The patient is a well-appearing mildly obese male, sitting up in a chair, in no acute distress. HEENT: Head is atraumatic and normocephalic. Mucous membranes are moist. NECK: Supple. No lymphadenopathy. No carotid bruits. Trachea is midline. CV: S1 and S2. Regular rate and rhythm. No appreciable murmurs, rubs or gallops. LUNGS: Regular respiratory rate and pattern. Clear to auscultation bilaterally. The patient does have a post sternotomy surgical incision, which is well approximated and healing nicely. There is no oozing. There is no erythema. ABDOMEN: Positive bowel sounds. Soft and nontender. No organomegaly. Mildly obese. EXTREMITIES: No edema. Both lower extremities are warm and well perfused. SKIN: No rashes or abrasions, postsurgical scar as mentioned above. CONDITION AT DISCHARGE: Stable. DISCHARGE MEDICATIONS: 1. We will restart the patient's previous medication of amlodipine 10 mg daily. We will also start lisinopril at a lower dose of 10 mg as opposed to 20 mg given his renal insufficiency. 2. Hydrochlorothiazide 25 mg daily will be restarted. He will resume his other home medications that he was taking, which include aspirin 325 mg daily, buspirone 10 mg p.o. b.i.d., glyburide 2.5 mg p.o. q.a.m., pantoprazole 40 mg p.o. q.a.m., pravastatin 40 mg p.o. at bedtime, Plavix 75 mg daily, fish oil 1000 mg cap daily, and metformin 500 mg p.o. b.i.d. DISCHARGE DISPOSITION: Home. PLAN: The patient has a followup appointment scheduled with Dr. Joyner for this week. I have advised him to continue to monitor his blood pressure at home. He was bradycardic during his stay, so beta-austin was avoided in this patient even with his prior history of CAD and NC. I have advised him also to follow up with his primary care provider at [facility] for further monitoring of his renal insufficiency. It does appear that his creatinine of 1.7 today is consistent with his previous creatinine numbers, which have ranged from 1.35 to 1.68 in the past. He also has a followup appointment with Dr. Cazares. The patient will be discharged home in good condition, with instructions to continue his cardiac rehab and keep his followup appointments. The patient has been compliant with all instructions, and all questions have been answered to the patient's satisfaction. Care of this patient has been discussed with Dr. Rahman, who agrees with the above. Job ID: [id number]
--- NOTE | 2019-01-04 01:42 | EKG ---
Test Reason : Blood Pressure : / mmHG Vent. Rate : 055 BPM Atrial Rate : 055 BPM P-R Int : 172 ms QRS Dur : 094 ms QT Int : 452 ms P-R-T Axes : 034 002 041 degrees QTc Int : 432 ms Sinus bradycardia Low voltage QRS Inferior infarct , age undetermined Cannot rule out Anterior infarct , age undetermined Abnormal ECG Confirmed by HUMA FUENTES ([id number]), editor producer GINGER MADISON ([id number]) on 01/04/2019 1:41:54 AM Referred By: Confirmed By:HUMA FUENTES
== END 2018-12-26 11:26 | disposition home or self-care (01) ==
LOC: ERS 19:45 → ERHOLD 20:30
PROVIDERS: ADMIT Hospitalist; ATTEND Hospitalist
DX: I16.1 Hypertensive emergency (principal); I12.9 Hypertensive chronic kidney disease with stage 1 through stage 4 chronic kidney disease, or unspecified chronic kidney disease; E11.22 Type 2 diabetes mellitus with diabetic chronic kidney disease; N18.3 Chronic kidney disease, stage 3 (moderate); I24.8 Other forms of acute ischemic heart disease; I25.10 Atherosclerotic heart disease of native coronary artery without angina pectoris; E78.5 Hyperlipidemia, unspecified; F41.9 Anxiety disorder, unspecified; I25.2 Old myocardial infarction; Z87.891 Personal history of nicotine dependence; Z79.02 Long term (current) use of antithrombotics/antiplatelets; Z79.82 Long term (current) use of aspirin; Z79.84 Long term (current) use of oral hypoglycemic drugs; Z79.899 Other long term (current) drug therapy; Z95.1 Presence of aortocoronary bypass graft; Z95.5 Presence of coronary angioplasty implant and graft
CPT/HCPCS: 36415; 36416; 80048; 84484; 85025; 93005; 96372; G0378; J1650

== ENCOUNTER 2019-06-01 19:47 | Observation (INO) | payer SELFPAY ==
[2019-06-01 22:57] VITALS: BMI 35.1
[2019-06-01 23:20] LABS: Troponin I 0.128 ng/mL (< 0.028)
[2019-06-02] MEDS ORDERED: Ondansetron PF 4 MG/2 ML Vial IVP PRN ×2 (00:34→03:06)
[2019-06-02] MEDS ORDERED: Ondansetron ODT 4 MG TAB SL PRN (00:34)
[2019-06-02] MEDS ORDERED: Ondansetron ODT 4 MG TAB PO PRN (03:06)
[2019-06-02] MEDS ORDERED: Acetaminophen 650 MG Suppository PR PRN (03:06)
[2019-06-02] MEDS ORDERED: Acetaminophen 325 MG TAB PO PRN (03:06)
[2019-06-02] MEDS ORDERED: Dextrose 5% in Water 1,000 ML IV PRN (03:13)
[2019-06-02] MEDS ORDERED: HumaLOG 300 UNITS/3 ML VIAL SC PRN ×2 (03:13)
[2019-06-02] MEDS ORDERED: Dextrose 50% Abboject 50 ML SYRINGE SLOW IVP PRN (03:13)
[2019-06-02] MEDS ORDERED: Sodium Chloride 0.9% 1,000 ML IV SCH (03:30)
[2019-06-02 03:52] LABS: #Basophils 0.1 thou/uL (0.0-0.2); #Eosinphils 0.1 thou/uL (0.0-0.7); #Lymphocytes 2.1 thou/uL (1.20-3.40); #Monocytes 0.5 thou/uL (0.11-0.59); #Neutrophils 2.6 thou/uL (1.40-6.50); %Basophils 1.1 % (0.0-1.0); %Eosinophils 2.4 % (0.0-10.0); %Lymphocytes 39.7 % (21.0-51.0); %Monocytes 8.6 % (0.0-10.0); %Neutrophils 48.2 % (42.0-75.0); Hemoglobin 13.3 g/dL (14.0-18.0); Mean Corpuscular HGB CONC 33.5 g/dL (32.0-36.0); Mean Corpuscular Hemoglobin 28.2 pg (27.0-31.0); Mean Corpuscular Volume 84.1 fL (78.0-98.0); Mean Platelet Volume 7.8 fL (7.4-10.4); Platelet Count 173 thou/uL (130-400); RBC Distribution Width 11.8 % (11.5-14.5); Red Blood Cell (RBC) Count 4.72 mill/uL (4.70-6.10); White Blood Cell (WBC) Count 5.4 thou/uL (4.8-10.8)
--- NOTE | 2019-06-02 03:53 | HP ---
PRIMARY CARE PHYSICIAN: [facility]. CHIEF COMPLAINT: Chest pain x2 days. HISTORY OF PRESENT ILLNESS: Mr. Sauer is a 58-year-old gentleman with a history of coronary artery disease, who underwent CABG x3 in December 2018 and also has a history of hypertension and diabetes mellitus, who presents with ongoing intermittent chest pain for the last 2 days. The patient states it was most severe two days ago and lasted approximately 3 hours for which he did not take any medications. The patient states he was supposed to have followed up with Dr. Cazares as an outpatient following recent CABG but due to not having insurance, did not proceed with the appointment. The patient states he has been in his usual state of health until Saturday. He states the discomfort was in the center of his chest, radiating to the left shoulder, which he states was 8/10 in severity. He states the pain lasted 3 hours before subsiding on its own. Since then, he has had brief episodes of chest pain, also brought on with exertion only and lasting a few minutes. He denies having any associated nausea, vomiting, or diaphoresis. He does report having a cough for the last 2 days, which is new and productive for white sputum. Denies any hemoptysis. No lower leg swelling or calf tenderness. No complaints of hemoptysis. He is not a cigarette smoker but more recently quit smoking marijuana, which he previously did once a day. In the emergency department, the patient underwent an EKG which showed normal sinus rhythm with a heart rate of 61, similar to previous EKG. ST segments and T-waves are unremarkable. The patient was given Lovenox 1 mg/kg and aspirin low-dose 162 mg to complete 324 mg as he takes 162 mg p.o. daily. PAST MEDICAL HISTORY: 1. Coronary artery disease. 2. Hypertension. 3. Diabetes mellitus. 4. Hyperlipidemia. 5. History of spinal meningitis. 6. History of myocardial infarction in 2011, treated with stents x2. PAST SURGICAL HISTORY: 1. CABG x3 in December 2018. 2. Cardiac stents x2 in 2011. 3. Left knee surgery 1975. SOCIAL HISTORY: The patient denies any tobacco use. Denies any alcoholic consumption. States he takes one "hits" of marijuana daily by vape. No other drug use. ALLERGIES: NO KNOWN DRUG ALLERGIES. CURRENT MEDICATIONS: 1. Lisinopril. 2. Buspirone. 3. Metformin. 4. Pravastatin. 5. Plavix. 6. Protonix. 7. Amlodipine. 8. Hydrochlorothiazide. 9. Fish oil. 10. Aspirin. PHYSICAL EXAMINATION: GENERAL: The patient appears well developed, well nourished, is in no acute distress. He is found resting comfortably in bed. VITAL SIGNS: Temperature 98.4, pulse 53, respirations 18, O2 saturation 95% on room air, blood pressure 139/81. HEENT: Normocephalic and atraumatic. Pupils are equal, round, and reactive to light. Sclerae without icterus. Oropharynx is clear. NECK: Supple. LUNGS: Clear to auscultation bilaterally without any wheezes, rales, or rhonchi. CARDIAC: Regular rate and rhythm. Mild central chest wall tenderness with palpation. No bone deformities. No guarding. LUNGS: Clear to auscultation bilaterally. ABDOMEN: Soft, nontender, and nondistended. Normoactive bowel sounds present. EXTREMITIES: No lower leg swelling or edema. No calf tenderness. NEUROLOGIC: Alert and oriented x3. SKIN: Without rash or jaundice. LABORATORY DATA: Full blood count notable for white count of 5.9, hemoglobin 13.4, hematocrit 42, platelets 184. Sodium 141, potassium 3.9, BUN 22, creatinine 1.54, GFR 46, total bilirubin 0.4. LFTs otherwise unremarkable. Lipase normal at 26, alkaline phosphatase 70. CK 158. Troponin 0.104, 0.128. IMAGING DATA: Chest x-ray obtained June 01, 2019. No acute cardiopulmonary process. IMPRESSION AND PLAN: Mr. Sauer is a very pleasant 58-year-old gentleman, who has been referred for management of the following. 1. Acute coronary syndrome rule out. He reports having intermittent chest pain brought on with exertion for the last 2 days. Continue to trend troponins. The patient with recent coronary artery bypass grafting in December 2018 and stents placed in the past. He has multiple comorbidities. We will place a consultation with Dr. Cazares, Cardiology, whom he was supposed to see in the outpatient setting. However, due to insurance, the patient did not keep appointments. 2. Hypertension. Resume home medications and monitor blood pressure. 3. Diabetes mellitus. Hold metformin and initiate insulin sliding scale. 4. Hypercholesterolemia. Resume home medications. 5. Chronic kidney disease. The patient n.p.o. until evaluated by Cardiology. Renal function is stable, but we will give gentle hydration. We will also add BNP. 6. Gastrointestinal prophylaxis. We will resume home dose of pantoprazole. 7. Deep venous thrombosis prophylaxis. Mechanical SCDs. 8. Code status full. His surrogate decision maker is his daughter, Demetria Sauer. The patient's case was discussed with attending, who agrees with plan of care as described above. Job ID: [id number]
[2019-06-02 04:16] LABS: Anion Gap 11 mmol/L (10-20); BUN (Urea Nitrogen) 19 mg/dL (8.4-25.7); Calc. Creatinine Clearance 85 mL/min (70-130); Calcium 9.7 mg/dL (7.8-10.44); Carbon Dioxide 27 mmol/L (22-29); Chloride 106 mmol/L (98-107); Estimated GFR-MDRD 49; Glucose 121 mg/dL (70-105); Potassium 3.7 mmol/L (3.5-5.1); Sodium 140 mmol/L (136-145)
[2019-06-02 06:20] LABS: Amphetamine Not Detected (NotDetected); Barbiturates Screen Not Detected (NotDetected); Benzodiazepine Screen Not Detected (NotDetected); Cocaine Metabolite Screen Not Detected (NotDetected); Medtox Reader # READER 4; Methadone Not Detected (NotDetected); Methamphetamine Not Detected (NotDetected); Opiate Screen Not Detected (NotDetected); Oxycodone Screen Not Detected (NotDetected); Phencyclidine (PCP) Not Detected (NotDetected); THC/Cannabinoid Screen Detected (NotDetected); Tricyclic Screen Not Detected (NotDetected)
[2019-06-02 06:21] LABS: Medtox Control Line Valid? VALID (VALID)
[2019-06-02] MEDS ORDERED: Aspirin 325 MG TAB PO SCH (08:00)
[2019-06-02] MEDS ORDERED: Clopidogrel Bisulfate 75 MG TAB PO SCH (09:00)
[2019-06-02] MEDS ORDERED: Hydrochlorothiazide 25 MG TAB PO SCH (09:00)
[2019-06-02] MEDS ORDERED: Lisinopril 10 MG TAB PO SCH (09:00)
[2019-06-02] MEDS ORDERED: Amlodipine 10 MG TAB PO SCH (09:00)
[2019-06-02] MEDS ORDERED: Fish Oil 1,000 MG CAP PO SCH (09:00)
[2019-06-02] MEDS ORDERED: busPIRone HCl 10 MG TAB PO SCH (09:00)
[2019-06-02] MEDS ORDERED: Famotidine/PF 20 mg/2ml Vial SLOW IVP SCH (09:00)
[2019-06-02 12:07] VITALS: BP 143/81; TEMP 98.3
[2019-06-02] MEDS ORDERED: Pravastatin Sodium 40 MG TAB PO SCH (21:00)
--- NOTE | 2019-06-03 07:26 | CON ---
DATE OF CONSULTATION: HISTORY OF PRESENT ILLNESS: The patient is a 58-year-old gentleman, who presented for evaluation of chest discomfort. The patient has a long history of coronary artery disease. He previously had several PTCA and stent placements. In December of 2018, he underwent coronary bypass graft surgery x3. The patient was in his usual state of health when he developed left-sided chest discomfort. He states he had been under a great deal of stress. He developed left-sided pain that lasted for approximately 3 hours. He states he had been lifting some very heavy objects. He also reports having some midsternal chest discomfort over the past several days. He states that he has been doing significant physical exertion. The patient denies having any present chest discomfort. The patient states that his chest discomfort did not feel like his previous angina. The patient has multiple cardiac risk factors including hypertension, diabetes mellitus, and a family history of coronary artery disease. PAST MEDICAL HISTORY: 1. CAD. 2. Diabetes mellitus. 3. Hypertension. 4. Dyslipidemia. PAST SURGICAL HISTORY: Coronary bypass graft surgery and knee surgery. SOCIAL HISTORY: Former smoker. ALLERGIES: NO KNOWN DRUG ALLERGIES. MEDICATIONS: 1. Pravastatin 40. 2. Lisinopril 10. 3. Aspirin 162.5. 4. Norvasc 10 daily. 5. Metformin 500 q.a.m. 6. Plavix 75 daily. 7. Hydrochlorothiazide 25 daily. 8. Protonix 40 daily. REVIEW OF SYSTEMS: Ten point system, otherwise unremarkable. No history of bruising or bleeding. PHYSICAL EXAMINATION: GENERAL: Obese gentleman, in no acute distress. VITAL SIGNS: Blood pressure 140/82. NECK: No jugular venous distention. LUNGS: Clear to auscultation. HEART: Regular rate and rhythm. Normal S1 and S2. No murmurs. ABDOMEN: Distended. EXTREMITIES: Show no edema. VASCULAR: Radial pulses 2+. LABORATORY RESULTS: His sodium was 141, potassium 3.9, chloride 105, carbon dioxide 24, BUN 22, creatinine 1.5. Troponin was 0.1. His CPK-MB was 1.8. White blood cell count 5.9, hemoglobin 13.4, hematocrit 42.0, and platelets were 184. EKG revealed sinus bradycardia, RSR' suggestive of right ventricular conduction delay, and Q-wave suggestive of previous inferior infarct. IMPRESSION: 1. Atypical chest pain. 2. History of coronary bypass surgery. 3. History of multiple PTCA and stent placed. 4. Hypertension. 5. Diabetes mellitus. 6. Dyslipidemia. 7. Renal insufficiency. 8. History of tobacco abuse. This gentleman presents with atypical chest pain. His discomfort is probably secondary to musculoskeletal discomfort. The patient will undergo an exercise treadmill test. The patient has been told to avoid lifting very heavy objects. We will follow this patient with you through his hospitalization. Job ID: [id number] MTDD
--- NOTE | 2019-06-05 15:22 | EKG ---
Test Reason : Blood Pressure : / mmHG Vent. Rate : 053 BPM Atrial Rate : 053 BPM P-R Int : 172 ms QRS Dur : 098 ms QT Int : 444 ms P-R-T Axes : 018 003 033 degrees QTc Int : 416 ms Sinus bradycardia RSR' or QR pattern in V1 suggests right ventricular conduction delay Inferior infarct , age undetermined Abnormal ECG Confirmed by HARITHA STEIN, REY ([id number]), clinical editor GINGER MADISON ([id number]) on 06/05/2019 3:22:05 PM Referred By: Confirmed By:REY MG MD
== END 2019-06-02 13:08 | disposition home or self-care (01) ==
LOC: ERS 19:47 → 2SW 20:14
PROVIDERS: ADMIT Family Medicine; ATTEND Family Medicine
DX: R07.89 Other chest pain (principal); I12.9 Hypertensive chronic kidney disease with stage 1 through stage 4 chronic kidney disease, or unspecified chronic kidney disease; E11.22 Type 2 diabetes mellitus with diabetic chronic kidney disease; N18.9 Chronic kidney disease, unspecified; I25.10 Atherosclerotic heart disease of native coronary artery without angina pectoris; E78.00 Pure hypercholesterolemia, unspecified; E78.5 Hyperlipidemia, unspecified; I25.2 Old myocardial infarction; Z79.82 Long term (current) use of aspirin; Z79.84 Long term (current) use of oral hypoglycemic drugs; Z79.899 Other long term (current) drug therapy; Z87.891 Personal history of nicotine dependence; Z95.1 Presence of aortocoronary bypass graft
CPT/HCPCS: 36415; 36416; 80048; 80306; 83880; 84484; 85025; 93005; 93017; 96360; 96361; G0378